=== PATIENT | female | born 1965 | race Caucasian/White ===

== ENCOUNTER 2021-05-20 12:51 | Emergency (ER) | payer OTHER, SELFPAY ==
[2021-05-20 13:00] VITALS: BP 178/96; PULSE 94; RESP 18; TEMP 37; O2SAT 98
--- NOTE | 2021-05-20 13:02 | ED.GENADULT ---
HPI - General Adult General Chief complaint: Back Pain/Injury Stated complaint: High Blood Pressure,Pain in Back and throat Time Seen by Provider: 05/20/21 13:02 Source: patient and RN notes reviewed Mode of arrival: ambulatory Limitations: no limitations History of Present Illness HPI narrative: 55-year-old female who presents to [facility] with complaints of extreme elevation in blood pressure the past 2 days with 3 days of intermittent throat tightness and mid back pain which she rates at 5/10 Patient has had a history of hypertension and had doctors visit last week and B/P was high then and she has been keeping track of it. 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 She reports that last night the tightness in her upper chest and esophagus woke her up. Patient states that she has been under a lot of stress with father dying in January and doing all the legal stuff on his estate. She denies any nausea or episodes of vomiting or any diaphoresis. MD complaint: hypertension with mid back prajapati and upper chest pressure Related Data Home Medications Medication Instructions Recorded Confirmed zolpidem 10 mg tablet 10 mg PO QHS PRN 05/13/21 05/20/21 Allergies Allergy/AdvReac Type Severity Reaction Status Date / Time codeine Allergy Mild Itching Verified 05/20/21 14:26 Sulfa (Sulfonamide Allergy Mild HIVES Verified 05/20/21 14:26 Antibiotics) Review of Systems Review of Systems: CONSTITUTIONAL: Denies fever, chills, or sweats. EYES: Denies visual changes, redness, or discharge. ENT: Denies rhinorrhea, congestion, sore throat, or otalgia. CARDIOVASCULAR: Upper chest or throat pressure sensation denies any palpitations, or edema. RESPIRATORY: Denies cough or dyspnea. GASTROINTESTINAL: Denies abdominal pain, nausea, vomiting, or diarrhea. GENITOURINARY: Denies dysuria or hematuria. SKIN: Denies rash or itching. MUSCULOSKELETAL: Positive for mid back pain intermittently, no joint pain, or myalgia. NEUROLOGIC: Denies headache, numbness, or weakness. PSYCHIATRIC: denies anxiety or depression. All systems reviewed & are unremarkable except as noted in HPI and below PMFSH Past Medical History Medical History HTN (hypertension) Insomnia Surgical History Surgical History History of carpal tunnel release of both wrists History of D&C History of hysterectomy History of right knee surgery Family History Family History Father Heart disease Hypertension Mother Heart disease Hypertension Depression Social History Social History Smoking status: Never smoker Second hand tobacco smoke exposure: No Alcohol intake: never Substance use: never Substance use type: does not use Gender identity (if verbalized by the patient): Female Sexual Orientation (if Verbalized by the Patient): Straight or Heterosexual Comments At time of signature, agree with nursing past medical, surgical, social and family history. There is no relevant family history pertinent to the presenting complaint Exam Narrative: GENERAL: Well-appearing, well-nourished,obese, and in no acute distress. HEAD: Normocephalic, atraumatic. EYES: PERRLA and EOMI. ENT: Nares clear, no rhinorrhea or epistaxis. Mucous membranes moist.TM's normal NECK: Supple.no lymphadenopathy CHEST: Clear to auscultation. No respiratory distress.SAO2 98% on room air HEART: Regular rate and rhythm. No murmur heard. Normal peripheral pulses. ABDOMEN: Soft, nontender, nondistended, normal active bowel sounds. denies any nausea or emesis EXTREMITIES: Normal range of motion. No edema. SKIN: Warm, dry, no rash. NEURO: No focal deficits. Alert and oriented x3. Course Course Emergency Course: Intermittent episodes o
--- NOTE | 2021-05-20 13:15 | ECG_ITS ---
Measurements Intervals Pinson Rate: 90 P: 6 OR: 160 QRS: 10 QRSD: 81 T: 19 QT: 350 QTc: 430 Interpretive Statements SINUS RHYTHM DELAYED PRECORDIAL R/S TRANSITION BORDERLINE ECG Electronically Signed On 05-20-2021 13:24:08 CDT by Julio Haynes D.O.
[2021-05-20 13:30] VITALS: BP 178/102; PULSE 94; O2SAT 98
== END 2021-05-20 13:30 | disposition short-term general hospital (02) ==
PROVIDERS: Emergency Provider Registered Nurse; PCP Family Medicine
DX: I10 Essential (primary) hypertension (principal)
CPT/HCPCS: 93005; 99213; G0463

== ENCOUNTER 2021-05-20 13:52 | Observation (INO) | payer OTHER, SELFPAY ==
[2021-05-20] VITALS (27 sets, daily range): BP systolic 127–188; BP diastolic 87–116; PULSE 84–101; RESP 16–34; TEMP 36.1–36.6; O2SAT 96–100; BMI 45.7
--- NOTE | ~2021-05-20 | NM_ITS ---
EXAMINATION: NM flower stress w perfusion DATE: 05/21/2021 13:32 INDICATION: Chest pain TECHNIQUE: Rest images were obtained following intravenous administration of 11 mCi Tc99m tetrofosmin (Myoview). The patient was infused intravenously with Lexiscan (Regadenoson). Then, 33 mCi Tc99m tet rofosmin (Myoview) was administered intravenously, and stress images were obtained. Data was reconstr ucted into short axis and horizontal and vertical long axis SPECT images. Gated SPECT images were als o obtained. COMPARISON: None. FINDINGS: There is no definite reversible or fixed perfusion abnormality to suggest ischemia or infar ction. There is normal left ventricular chamber size, wall motion and ejection fraction. Left ventr icular ejection fraction measures >70%. IMPRESSION: 1. Normal myocardial perfusion at rest and during stress. 2. Left ventricular ejection fraction measuring >70%. Reviewed, dictated and finalized at location A.
--- NOTE | ~2021-05-20 | XR_ITS ---
EXAMINATION: XR chest 2V EXAM DATE: 05/20/2021 14:49 INDICATION: Chest pain. TECHNIQUE: Frontal and lateral projections of the chest obtained and reviewed. Comparison is made to prior examination from 01/21/2021. FINDINGS: The lungs are clear. There are no pleural effusions. The cardiomediastinal silhouette is within normal limits. There is no pneumothorax suspected. The bones and soft tissues are unremarkab le. IMPRESSION: No acute cardiopulmonary findings. Reviewed, dictated and finalized at location A.
--- NOTE | ~2021-05-20 | CT_ITS ---
EXAMINATION: CTA chest PE protocol DATE: 05/20/2021 16:41 INDICATION: Chest pain and shortness of breath TECHNIQUE: Computed tomography angiography (CTA) of the chest was performed with 100 mL Omnipaque-350 intravenous contrast timed to evaluate the pulmonary arteries. Coronal maximum intensity projection 3D-reconstructions were created by the technologist. The dose-length product (DLP) was 887.57 mGy-cm. Automated exposure control and iterative reconstruction technique were employed. COMPARISON: None. FINDINGS: The pulmonary arteries are well-opacified. No pulmonary embolism is identified. There is mi ld dependent atelectasis. The lungs are free of focal airspace opacities. A 4 mm nodule is present in the left lower lobe, likely old granulomatous disease. The heart size is normal. There is a 2.0 x 1. 4 cm soft tissue density mass in the anterior mediastinum. There is diffuse circumferential wall thic kening of the esophagus. The gallbladder is surgically absent. The liver is diffusely low in attenuat ion when compared with the spleen, consistent with hepatic steatosis. There is moderate thoracic spon dylosis. IMPRESSION: 1. No pulmonary embolism or acute cardiopulmonary abnormality. 2. Incidental soft tissue mass in the anterior mediastinum. Differential includes thymoma, ectopic th yroid, lymphoma, and possibly germ cell tumor. 3. Diffuse circumferential wall thickening of the esophagus which may reflect esophagitis. Reviewed, dictated and finalized at location A. IMPRESSION: 1. No pulmonary embolism or acute cardiopulmonary abnormality. 2. Incidental soft tissue mass in the anterior mediastinum. Differential includ es thymoma, ectopic thyroid, lymphoma, and possibly germ cell tumor. 3. Diffuse circumferential wall thickening of the esophagus which may reflect e sophagitis.
[2021-05-20 14:29] LABS: Basophils Percent Auto 0.4 % (0.2-1.2); Eosinophils Absolute Auto 0.1 K/mm3 (0-0.3); Eosinophils Percent Auto 1.8 % (0-4.4); Hemoglobin 14.3 g/dL (12.0-15.0); Immature Granulocyte Absolute 0.02 K/mm3 (0.00-0.031); Immature Granulocyte Percent A 0.3 % (0-0.5); Lymphocytes Absolute Auto 2.04 K/mm3 (0.9-3.2); Mean Corpuscular HGB Conc 32.5 g/dl (32-36); Mean Corpuscular Volume 92.4 fl (80-100); Mean Platelet Volume 8.5 fl (7.4-10.4); Monocytes Absolute Auto 0.5 K/mm3 (0.1-0.6); Monocytes Percent Auto 6.9 % (2.6-8.5); Neutrophils Absolute Auto 4.1 K/mm3 (1.3-6.7); Neutrophils Percent Auto 60.6 % (45.5-73.1); Platelet Count Result 285 k/mm3 (150-375); Red Blood Count 4.76 M/mm3 (4.2-5.4); Red Cell Distribution Width 13.2 % (11.5-14.5); White Blood Count 6.8 K/mm3 (4.5-10.0)
[2021-05-20 14:38] LABS: Anion Gap 12 mmol/L (8-16); Blood Urea Nitrogen 17 mg/dL (7-17); Calcium 9.4 mg/dL (8.4-10.2); Carbon Dioxide 24 mmol/L (22-30); Chloride 106 mmol/L (98-107); Estimated CRCL calculation 87 ml/min; Estimated Glomerular Filt Rate > 60; Glucose 138 mg/dL (65-110); INR 0.9; Prothrombin Time 11.8 Seconds (11.1-14.7); Sodium 142 mmol/L (137-145)
[2021-05-20 14:39] LABS: Partial Thromboplastin Time 27.1 SECONDS (22.3-36.8)
--- NOTE | 2021-05-20 14:48 | ED.RECABL ---
HPI - Recheck/Abnormal Lab/Rx General Chief Complaint: Recheck/Abnormal Lab/Rx <Tamica Mariscal PA-C - Last Filed: 05/20/21 18:18> Stated Complaint: htn <Tamica Mariscal PA-C - Last Filed: 05/20/21 18:18> Time Seen by Provider: 05/20/21 14:02 <Tamica Mariscal PA-C - Last Filed: 05/20/21 18:18> Source: patient <Tamica Mariscal PA-C - Last Filed: 05/20/21 18:18> Mode of arrival: ambulatory <ANA Mohamud Last Filed: 05/20/21 18:18> Limitations: no limitations <Tamica Mariscal PA-C - Last Filed: 05/20/21 18:18> History of Present Illness HPI narrative: This is a 55 year old female that presents to the ER for elevated blood pressure. Reports over the last week she has noted her blood pressure is elevated. Does report increased stress at home. Reports since yesterday she has been getting blood pressures in the 180s-220s systolic. Reports she has been taking her Lisinopril as prescribed. She has been on this medication for years. Reports she has also been getting intermittent chest pain/pressure over the last couple of days. Denies any pain currently. Does also report she got short of breath walking from the car inside to the ER today. Denies fever, cough, or lower extremity edema. <Tamica Mariscal PA-C - Last Filed: 05/20/21 18:18> Related Data Home Medications: Home Medications Medication Instructions Recorded Confirmed zolpidem 10 mg tablet 10 mg PO QHS PRN 05/13/21 05/20/21 <ANA Mohamud Last Filed: 05/20/21 18:18> Allergies/Adverse Reactions: Allergies Allergy/AdvReac Type Severity Reaction Status Date / Time codeine Allergy Mild Itching Verified 05/20/21 14:26 Sulfa (Sulfonamide Allergy Mild HIVES Verified 05/20/21 14:26 Antibiotics) <ANA Mohamud Last Filed: 05/20/21 18:18> Review of Systems Review of Systems: CONSTITUTIONAL: Denies fever CARDIOVASCULAR: Reports chest pain. Denies edema. RESPIRATORY: Reports dyspnea. Denies cough <Tamica Mariscal PA-C - Last Filed: 05/20/21 18:18> All systems reviewed & are unremarkable except as noted in HPI and below <Tamica Mariscal PA-C - Last Filed: 05/20/21 18:18> [facility] Past Medical History Medical History: Medical History HTN (hypertension) Insomnia <Tamica Mariscal PA-C - Last Filed: 05/20/21 18:18> Surgical History Surgical History: Surgical History History of carpal tunnel release of both wrists History of D&C History of hysterectomy History of right knee surgery <Tamica Mariscal PA-C - Last Filed: 05/20/21 18:18> Family History Family History: Family History Father Heart disease Hypertension Mother Heart disease Hypertension Depression <Tamica Mariscal PA-C - Last Filed: 05/20/21 18:18> Social History Social History: Social History Smoking status: Never smoker Second hand tobacco smoke exposure: No Alcohol intake: never Substance use: never Substance use type: does not use Gender identity (if verbalized by the patient): Female Sexual Orientation (if Verbalized by the Patient): Straight or Heterosexual Spiritual care concerns: No <Tamica Mariscal PA-C - Last Filed: 05/20/21 18:18> Exam Narrative: GENERAL: Well-appearing, obese, and in no acute distress. HEAD: Normocephalic, atraumatic. EYES: EOMI. NECK: Supple. No adenopathy or masses. No carotid bruits or JVD CHEST: Clear to auscultation. No respiratory distress. No wheezes rales or rhonchi HEART: Regular rate and rhythm. No murmur heard. Normal peripheral pulses. EXTREMITIES: Normal range of motion. No edema. SKIN: Warm, dry, no rash. NEURO: No focal deficits. Alert and oriented x3. PSYCH: Normal mood and affect <Tamica Dominguez
[2021-05-20 14:50] LABS: Troponin I < 0.012 ng/mL (0.000-0.034)
[2021-05-20 15:08] LABS: D Dimer 0.65 ug/mL (<0.48)
[2021-05-20 15:23] LABS: NT Pro B Type Natriuretic Pept 67 pg/mL (5-100)
[2021-05-20] MEDS: PANTOPRAZOLE SODIUM IV 40 MG VIAL IV PUSH (17:24)
[2021-05-20 17:51] LABS: Troponin I < 0.012 ng/mL (0.000-0.034)
--- NOTE | 2021-05-20 19:34 | ADMGEN ---
This patient, Kylee Souza, was admitted to IMU Room 202-01 AT 1906. Patient/family oriented to hospital policies and general routines including ID bracelet, bed and alarms, visiting hours, pain management, procedures, bathroom and other care routines, personal items, smoking policy, room service/diet, and visiting hours. Information on how to activate the Rapid Response Team has been discussed. Patient/Family are encouraged to report perceived risks to care and to ask questions if they do not understand what they are told or what they should do.
[2021-05-20 20:34] LABS: Troponin I < 0.012 ng/mL (0.000-0.034)
--- NOTE | 2021-05-20 21:00 | PM.IMHP ---
H&P: HPI History of Present Illness Date/Time: 05/20/21 21:00 Chief Complaint: Chest pain Narrative: This is a 55-year-old female with past medical history significant for hypertension, obesity, asthma. Patient presented today to the emergency room after she went to work and while she was at work she had lightheadedness, chest pain, she took her blood pressure and her systolic was in the 200's was having shortness of breath as well and pounding occipital headache but no vision changes, no blurry vision, no syncope or near syncope, no leg swelling ,no pounding on her chest ,no nausea ,no vomiting ,no abdominal pain ,no diarrhea ,she denies any PND or orthopnea. According to patient she has been on lisinopril and she has been taking 10 mg p.o. daily. She had an elevated D-dimer and CT rule out acute pulmonary embolism however she was found to have mass in her mediastinum and distal circumferential wall thickening of the esophagus however patient denies any heartburn or dyspepsia. Troponins x3 have been negative. Patient has been placed in observation for further management treatment and evaluation. Review of Systems Review of Systems: Lightheadedness uncontrolled high blood pressure Constitutional: Constitutional: Denies chills, Denies fatigue, Denies fever(s), Reports headache(s), Denies malaise, Denies night sweats and Denies weakness Eyes: Eyes: Denies change in vision ENT: Denies dysphagia, Denies vertigo, Denies dizziness, Denies nasal congestion, Denies nasal discharge and Denies odynophagia Cardiovascular: Cardiovascular: Denies irregular heart rhythm, Denies lightheadedness, Denies radiating jaw, neck or arm pain, Denies orthopnea and Denies paroxysmal nocturnal dyspnea Respiratory: Respiratory: Denies cough Gastrointestinal: Gastrointestinal: Denies abdominal pain, Denies dyspepsia, Denies heartburn and Denies diarrhea Genitourinary: Genitourinary: Reports no additional female genitourinary complaints Musculoskeletal: Musculoskeletal: Reports no additional musculoskeletal complaints Integumentary/Breasts: Skin/Breast: Reports system reviewed and no additional complaints, except as docu Neurologic: Reports system reviewed and no additional complaints, except as documented Psychiatric: Psychiatric: Reports no additional psychiatric complaints Endocrine: Endocrine: Reports no additional endocrine complaints Hematologic/Lymphatic: Hematologic/Lymphatic: Reports no additional hematologic/lymphatic complaints Allergic/Immunologic: Allergic/Immunologic: Reports no additional allergic/immunologic complaints PMFSH Past Medical History Medical History HTN (hypertension) Insomnia Surgical History Surgical History History of carpal tunnel release of both wrists History of D&C History of hysterectomy History of right knee surgery Family History Family History Father Heart disease Hypertension Mother Heart disease Hypertension Depression Social History Social History Smoking status: Never smoker Second hand tobacco smoke exposure: No Alcohol intake: never Substance use: never Substance use type: does not use Gender identity (if verbalized by the patient): Female Sexual Orientation (if Verbalized by the Patient): Straight or Heterosexual Spiritual care concerns: No Meds Home Medications and Allergies Home Medications Medication Instructions Recorded Confirmed Type albuterol sulfate 90 mcg/actuation 1 inh INHALATION Q4H PRN #8.5 g 05/13/21 05/20/21 Rx aerosol inhaler zolpidem 10 mg tablet 10 mg PO QHS PRN 05/13/21 05/20/21 History lisinopril 10 mg PO DAILY 05/20/21 05/20/21 History Allergies Allergy/AdvReac Type Severity Reaction Status Date / Time dez Escamilla
[2021-05-21] VITALS (9 sets, daily range): BP systolic 123–151; BP diastolic 67–108; PULSE 76–90; RESP 14–22; TEMP 36.1–36.8; O2SAT 97–99
--- NOTE | 2021-05-21 | ECHO_ITS ---
Patient Info Name: Kylee Souza Age: 55 years : 1965 Gender: Female Ht: 63 in Wt: 258 lbs BSA: 2.35 m2 HR: 78 bpm BP: 123 / 67 mmHg Heart Rhythm: Sinus Rhythm Technical Quality: Fair Exam Date: 05/21/2021 2:33 PM Exam Location: [facility]am Room: Patient Status: Inpatient Admit Date: 05/20/2021 Staff Ordering Physician: Barbara Alvarado MD Health Care Specialist: Jackie Muñoz RDCS Attending Provider: Edel Arora MD Referring Physician: Christiano ROCHA; Exam Type: CA echo doppler color flow Study Info Indications - uncontrolled htn Complete two-dimensional, color flow and Doppler transthoracic echocardiogram is performed. Summary 1. Complete two-dimensional, color flow and Doppler transthoracic echocardiogram is performed. 2. Left ventricular chamber size, wall thickness and systolic function are normal with no regional wall motion abnormalities with an estimated ejection fraction of 65-70%. Diastolic dysfunction is present, grade 2. 3. Left atrial chamber dimension is mildly enlarged. 4. No significant valve disease. 5. Normal sinus rhythm. Left Ventricle Left ventricular chamber dimension is normal. Left ventricular systolic function is normal, estimated at 65-70%. There is no increased left ventricular wall thickness. Left ventricular septal wall motion is normal. The left ventricular diastolic function is grade II diastolic dysfunction. E/e' 12.0 is mildly elevated. Left ventricular chamber size, wall thickness and systolic function are normal with no regional wall motion abnormalities with an estimated ejection fraction of 65-70%. Diastolic dysfunction is present, grade 2. Right Ventricle Right ventricular chamber dimension is normal. Right ventricular systolic function is normal. Left Atria Left atrial chamber dimension is mildly enlarged. Right Atria Right atrial chamber dimension is normal. Aortic Valve The aortic valve is trileaflet. There is no aortic valve sclerosis. There is no aortic valve stenosis. There is no aortic valve regurgitation. Pulmonic Valve The pulmonic valve is normal. There is no pulmonic valve stenosis. There is no pulmonic regurgitation. Mitral Valve The mitral valve has normal leaflets. There is no mitral valve stenosis. There is no mitral valve regurgitation. Tricuspid Valve The tricuspid valve leaflets are normal. There is no significant tricuspid valve stenosis. There is no tricuspid valve regurgitation. No pulmonary hypertension, estimated pulmonary arterial systolic pressure is Empty. Pericardium/Pleural The pericardium appears normal. There is no pericardial effusion. Inferior Vena Cava Not well visualized inferior vena cava with >50% collapse upon inspiration consistent with Empty right atrial pressure, Empty. Aorta The aortic root size at the sinus of Valsalva is normal. The prox ascending aorta size is normal. Left Ventricular Outflow Tract Name Value Normal LVOT 2D LVOT Diameter 2.0 cm LVOT Doppler LVOT Peak Gradient 5 mmHg LVOT Mean Gradient
--- NOTE | 2021-05-21 | EST_ITS ---
Patient Info Name: Kylee Souza Age: 55 years : 1965 Gender: Female Ht: 63 in Wt: 258 lbs BSA: 2.35 m2 HR: 87 bpm BP: 136 / 86 mmHg Heart Rhythm: Sinus Rhythm Exam Date: 05/21/2021 12:02 PM Exam Location: [facility] Stress Patient Status: Outpatient Admit Date: 05/20/2021 Staff Ordering Physician: Candice Garcia MD Attending Provider: Edel Arora MD Exercise Technologist: Toshia Lazo CT Exercise Physician: Lin Byrnes MD Exam Type: CA stress flower w NM Study Info A regadenoson stress test was performed. Summary 1. No abnormal ST-T wave changes with lexiscan. 2. Nuclear test results to follow. Protocol: Lexiscan Stress ECG Details Stage: REST Duration (min): 1 min : 21 sec HR (bpm): 86 SBP (mmHg): 136 DBP (mmHg): 86 Stage: REST Duration (min): 13 min : 14 sec HR (bpm): 95 SBP (mmHg): 136 DBP (mmHg): 86 Stage: STAGE 1 Duration (min): 1 min : 0 sec HR (bpm): 111 SBP (mmHg): 111 DBP (mmHg): 61 Stage: RECOVERY Duration (min): 1 min : 0 sec HR (bpm): 105 SBP (mmHg): 111 DBP (mmHg): 61 Stage: RECOVERY Duration (min): 2 min : 0 sec HR (bpm): 105 SBP (mmHg): 111 DBP (mmHg): 61 Stage: RECOVERY Duration (min): 3 min : 0 sec HR (bpm): 100 SBP (mmHg): 118 DBP (mmHg): 66 Stage: RECOVERY Duration (min): 4 min : 0 sec HR (bpm): 101 SBP (mmHg): 118 DBP (mmHg): 66 Stage: RECOVERY Duration (min): 4 min : 20 sec HR (bpm): 102 SBP (mmHg): 118 DBP (mmHg): 66 Rest HR: 95 bpm Peak HR: 111 bpm Rest Sys BP: 136 mmHg Peak Sys BP: 118 mmHg Max Pred HR: 166 bpm % Max Pred HR: 67 % Target HR: 141 bpm Max RPP: 13,098 bpm*mmHg BP Response: Normal blood pressure response Termination Reason: Completed protocol Cardiac Symptoms: Chest discomfort, Dyspnea Total Time: 1 min : 0 sec Rest Bullock BP: 86 mmHg Peak Bullock BP: 66 mmHg Total Dose: 0.4 mg Resting ECG Normal sinus rhythm - normal ECG. Stress ECG No abnormal ST/T wave changes with exercise. Arrhythmias None. Report Signatures
[2021-05-21] MEDS: ACETAMINOPHEN 500 MG TABLET 1000 MG PO (01:40)
--- NOTE | 2021-05-21 07:19 | PM.IMPN ---
Progress Note: A&P Assessment and Plan (1) Chest pain: Qualifiers: Chest pain type: unspecified Qualified Code(s): R07.9 - Chest pain, unspecified Code(s): R07.9 - Chest pain, unspecified Status: Acute Assessment and Plan: Troponins negative x3 Echocardiogram in a.m. Lexiscan stress test in am Needs better control of her blood pressure (2) HTN (hypertension): Code(s): I10 - Essential (primary) hypertension Status: Acute Assessment and Plan: Needs her medications to be adjusted Will increase lisinopril to 40 p.o. daily Hydralazine p.r.n. Continue to monitor (3) Mediastinal mass: Code(s): J98.59 - Other diseases of mediastinum, not elsewhere classified Status: Acute Assessment and Plan: Follow-up in outpatient setting Subjective Date/time seen: 05/21/21 07:19 his is a 55-year-old female with past medical history significant for hypertension, obesity, asthma. Patient presented today to the emergency room after she went to work and while she was at work she had lightheadedness, chest pain, she took her blood pressure and her systolic was in the 200's was having shortness of breath as well and pounding occipital headache but no vision changes, no blurry vision, no syncope or near syncope, no leg swelling ,no pounding on her chest ,no nausea ,no vomiting ,no abdominal pain ,no diarrhea ,she denies any PND or orthopnea. According to patient she has been on lisinopril and she has been taking 10 mg p.o. daily. She had an elevated D-dimer and CT rule out acute pulmonary embolism however she was found to have mass in her mediastinum and distal circumferential wall thickening of the esophagus however patient denies any heartburn or dyspepsia. Troponins x3 have been negative. Patient has been placed in observation for further management treatment and evaluation. S Review of Systems Constitutional: Constitutional: Denies chills, Denies fatigue, Denies fever(s), Reports headache(s), Denies malaise, Denies night sweats and Denies weakness Eyes: Eyes: Denies change in vision ENT: Denies dysphagia, Denies vertigo, Denies dizziness, Reports headache(s), Denies nasal congestion, Denies nasal discharge and Denies odynophagia Cardiovascular: Cardiovascular: Denies irregular heart rhythm, Denies lightheadedness, Denies radiating jaw, neck or arm pain, Denies orthopnea and Denies paroxysmal nocturnal dyspnea Respiratory: Respiratory: Denies cough Gastrointestinal: Gastrointestinal: Denies abdominal pain, Denies dysphagia, Denies dyspepsia, Denies heartburn, Denies diarrhea and Denies odynophagia Genitourinary: Genitourinary: Reports no additional female genitourinary complaints Musculoskeletal: Musculoskeletal: Reports no additional musculoskeletal complaints Integumentary/Breasts: Skin/Breast: Reports system reviewed and no additional complaints, except as docu Neurologic: Reports system reviewed and no additional complaints, except as documented, Denies vertigo, Denies dizziness, Reports headache(s) and Denies weakness Psychiatric: Psychiatric: Reports no additional psychiatric complaints Endocrine: Endocrine: Reports no additional endocrine complaints and Denies fatigue Hematologic/Lymphatic: Hematologic/Lymphatic: Reports no additional hematologic/lymphatic complaints Allergic/Immunologic: Allergic/Immunologic: Reports no additional allergic/immunologic complaints Exam Narrative: Laying in bed. Const: General: cooperative, comfortable, no acute distress, well developed, alert, awake, Physically active, well groomed and other (Well-appearing); No acute distress Nutritional Appearance: obese morbidly obese Orientation/consciousness: patient oriented x3 HENMT: Head: normal to inspection, normocephalic and atraumatic Ears: hearing grossly normal bilaterally General nose exam: Normal external nose present Face and sinus: normal facial exam Mouth: Yes Normal oral and
[2021-05-21] MEDS: lisinopriL 20 MG TABLET 40 MG PO (09:02)
--- NOTE | 2021-05-21 10:10 | PM.CNCAR ---
Assessment and Plan Assessment and plan (1) Chest pain: Qualifiers: Chest pain type: unspecified Qualified Code(s): R07.9 - Chest pain, unspecified Code(s): R07.9 - Chest pain, unspecified Status: Acute Assessment and Plan: Chest pain with a grabbing squeezing quality which is of concern for ACS or dissection. However, no aortic problems by CT and troponins and EKG are unremarkable after hours/days of CP, so ACS is unlikely. May relate to uncontrolled HTN or esophageal problems. Agree with Lexiscan stress test today. Tx H/A w/ analgesics. (2) HTN (hypertension): Code(s): I10 - Essential (primary) hypertension Status: Acute Assessment and Plan: Both parents have HTN and pt is in the age range in which HTN often starts. Agree w increasing lisinopril; likely will need multi-drug tx. (3) Mediastinal mass: Code(s): J98.59 - Other diseases of mediastinum, not elsewhere classified Status: Acute Assessment and Plan: Will need further evaluation. (4) Esophageal disease: Code(s): K22.9 - Disease of esophagus, unspecified Status: Acute Assessment and Plan: Thickening of esophagus, may have subclinical GERD or other pathology. History of Present Illness History of Present Illness Consult date/time: 05/21/21 10:10 Requesting physician: Candice Garcia MD Consult reason: chest pain Reason For Visit: Chest pain Narrative: Kylee Souza is a 55-year-old female whom I was asked to see at the request of Dr. Garcia for my advice and opinion regarding her chest pain in consultation. Ms. Souza has had borderline hypertension for many years well controlled with lisinopril 10 mg daily. When she saw Dr. Wooten last week it was 151/96. She has been checking her blood pressure the last few days and getting high blood pressures, 171/137, 204/120, 220/124 mmHg. ol. She was sent to the emergency room and admitted. She also has been having grabbing and squeezing chest discomfort the last 3 days. These episodes are substernal, occurring randomly at rest, can last for couple hours and then off and on through the day, more common in the morning, and irritating discomfort, sometimes associated with shortness of breath. Did not respond to IV PPI for GI cocktail. Troponins are negative. She has also been having terrible headaches the last 3 days and is requesting something stronger than Tylen No nonsteroidal use, no added salt diet, lifelong obesity but no recent weight gain, she does snore but has no known sleep apnea. Both parents have hypertension and her mother will be getting coronary stents in a couple weeks. Review of Systems Constitutional: Constitutional: Denies weakness Eyes: Eyes: Reports no additional eye complaints ENT: Denies epistaxis Cardiovascular: Cardiovascular: Reports chest pain, Denies pedal edema, Denies leg edema, Denies lightheadedness and Denies palpitations Respiratory: Respiratory: Reports dyspnea Gastrointestinal: Gastrointestinal: Denies abdominal pain, Denies hematochezia and Denies heartburn Genitourinary: Genitourinary: Denies hematuria Musculoskeletal: Musculoskeletal: Denies back pain and Denies neck pain Integumentary/Breasts: Skin/Breast: Denies rash Neurologic: Reports headache(s) Psychiatric: Psychiatric: Reports no additional psychiatric complaints PMFSH Past Medical History Medical History HTN (hypertension) Insomnia Surgical History Surgical History History of carpal tunnel release of both wrists History of D&C History of
[2021-05-21] MEDS: ACETAMINOPHEN/ASPIRIN/CAFFEINE 250-250-65 MG TABLET 2 TABLET PO (13:31)
--- NOTE | 2021-05-21 14:51 | PM.DS ---
DS: Admitting Diagnosis Discharge Date 05/21/2021 Admitting Diagnosis Chest pain, rule out ACS DS: Discharge Diagnosis Discharge Diagnosis (1) Chest pain: Qualifiers: Chest pain type: unspecified Qualified Code(s): R07.9 - Chest pain, unspecified Code(s): R07.9 - Chest pain, unspecified Status: Acute Assessment and Plan: Troponins negative x3 Echocardiogram in a.m. Lexiscan stress test in am Needs better control of her blood pressure (2) HTN (hypertension): Code(s): I10 - Essential (primary) hypertension Status: Acute Assessment and Plan: Needs her medications to be adjusted Will increase lisinopril to 40 p.o. daily Hydralazine p.r.n. Continue to monitor DS: Summary Hospital Course Reason for hospitalization: chest pain Hospital Course: This is a 55-year-old lady with past medical history significant for hypertension, obesity, asthma. Patient presented on 05/20/2021 to the emergency room after she was at work and she had lightheadedness, chest pain, she took her blood pressure and her systolic was in the 200's was having shortness of breath as well and pounding occipital headache but no vision changes, no blurry vision, no syncope or near syncope, no leg swelling ,no pounding on her chest ,no nausea ,no vomiting ,no abdominal pain ,no diarrhea ,she denies any PND or orthopnea. According to patient she has been on lisinopril and she has been taking 10 mg p.o. daily. She had an elevated D-dimer and CT rule out acute pulmonary embolism however she was found to have mass in her mediastinum and distal circumferential wall thickening of the esophagus however patient denies any heartburn or dyspepsia. Troponins x3 have been negative. Patient has been placed in observation for further management treatment and evaluation. Chest pain with a grabbing squeezing quality which is of concern for ACS or dissection. However, no aortic problems by CT and troponins and EKG are unremarkable after hours/days of CP, so ACS is unlikely. May relate to uncontrolled HTN or esophageal problems. HOspital course Chest pain with a grabbing squeezing quality was a concern for ACS or dissection. However, no aortic problems by CT and troponins and EKG are unremarkable after hours/days of CP, so ACS is unlikely. Lexiscan stress test was normal . Chest pain may relate to uncontrolled HTN or esophageal problems. (2) HTN (hypertension): Code(s): I10 - Essential (primary) hypertension Status: Acute Assessment and Plan: Both parents have HTN and pt is in the age range in which HTN often starts. Lisinopril was increased from 10 to 40 mg PO daily. HCTZ 12.5 mg PO dialy was added to her regimen. She is counselled about weight reduction, diet and exercise. Patient was referred to do a sleep study. Time Spent with Patient Time attestation: Total time spent providing and/or coordinating discharge services: Exam Narrative: Laying in bed. Const: General: cooperative, comfortable, no acute distress, well developed, alert, awake, Physically active, well groomed and other (Well-appearing); No acute distress Nutritional Appearance: obese morbidly obese Orientation/consciousness: patient oriented x3 HENMT: Head: normal to inspection, normocephalic and atraumatic Ears: hearing grossly normal bilaterally General nose exam: Normal external nose present Face and sinus: normal facial exam Mouth: Yes Normal oral and palatal mucosa present Eyes: General: appearance normal, both eyes and all related structures Alignment and Position: alignment normal Sclera: sclerae normal Pupils: Equal, round and reactive pupils present EOM: EOMs intact bilaterally Neck: Neck: normal visual inspection, full ROM, no lymphadenopathy, supple and no JVD Thyroid: thyroid normal Lymphatic: no lymphadenopathy noted Resp: Effort & Inspection: normal respiratory effort and able to speak in complete sentences Auscultation: baljinder
== END 2021-05-21 16:00 | disposition home or self-care (01) ==
LOC: ANHED 18:15 → ANHIMU 05-21 08:50
PROVIDERS: Physician Assistant; Admitting Provider Family Medicine; Emergency Provider Emergency Medicine; PCP Family Medicine; Visit Provider Internal Medicine
DX: R07.9 Chest pain, unspecified (principal); I10 Essential (primary) hypertension; E66.9 Obesity, unspecified; J98.59 Other diseases of mediastinum, not elsewhere classified; K22.9 Disease of esophagus, unspecified; R06.02 Shortness of breath; Z68.42 Body mass index [BMI] 45.0-49.9, adult
CPT/HCPCS: 36415; 71046; 71275; 78452; 80048; 83880; 84484; 85025; 85380; 85610; 85730; 93017; 93306; 96374; 99285; A9270; A9502; C9113; G0378; J2785; Q9967

== ENCOUNTER 2021-06-02 11:40 | Outpatient (CLI) | payer OTHER, SELFPAY ==
--- NOTE | ~2021-06-02 | PE_ITS ---
EXAMINATION: PET skull to mid thigh DATE: 06/02/2021 13:33 INDICATION: Mediastinal mass. TECHNIQUE: Blood glucose level was 102 mg/dL. 10.52 mCi of 18-fluorodeoxyglucose (18-FDG) was adminis tered i.v. Low dose computed tomography (CT) images were acquired from the base of the brain to the p roximal thighs for attenuation correction and anatomic localization. Positron emission tomography (PE T) images were acquired in the same distribution beginning 60 minutes after injection. Images includi ng fused PET/CT images were reconstructed in axial, coronal, and sagittal planes. Automated exposure control technique was employed. The dose-length product was 1332.59mGy-cm. COMPARISON: CT dated 05/20/2021 FINDINGS: Head/neck: There is symmetric increased activity in the oral cavity, palatine tonsils, laryngeal muscles and ocu lar muscles without CT correlate, likely physiologic. No pathologically enlarged cervical lymphadenop athy or suspicious foci of increased FDG uptake in the visualized head or neck. Chest: Lungs are clear with no suspicious pulmonary nodules, pneumonia or other pulmonary infiltrates, pulmo nary edema or pleural effusion. Heart size is normal. No pericardial effusion. Thoracic aorta is norm al in caliber. 2.5 x 2.4 x 1.4 cm anterior mediastinal mass on the anterior margin of the ascending t horacic aorta which is without discernible FDG activity which favors a benign etiology. No other path ologically enlarged or FDG avid thoracic lymphadenopathy. Abdomen/pelvis/proximal thighs: Physiologic renal accumulation and excretion of FDG activity in the kidneys, bladder and along portio ns of ureters. Diffuse hepatic steatosis with normal degree and heterogenous pattern of increased upt agueda throughout the liver without radiologic correlate or dominant FDG avid lesion. Cholecystectomy cl ips the gallbladder fossa. The pancreas, spleen and bilateral adrenal glands are normal. Mild uptake scattered throughout the bowels without radiologic correlate, also likely physiologic. No other abnor mal foci of increased FDG uptake or pathologically enlarged lymphadenopathy in the abdomen, pelvis or proximal thighs. Musculoskeletal: Moderate to severe thoracic spondylosis. Otherwise mild scattered degenerative skeletal changes. No s uspicious lytic, blastic or FDG avid bone lesions. IMPRESSION: 1. Likely benign 2.5 x 2.4 x 1.4 cm anterior mediastinal mass with no discernible FDG activity. Diffe rential would include schwannoma, chronic reactive lymph node, ectopic thyroid tissue, parathyroid ad enoma or low-grade thymoma. 2. No other lesions suspicious for primary or metastatic disease. Reviewed, dictated and finalized at location A. IMPRESSION: 1. Likely benign 2.5 x 2.4 x 1.4 cm anterior mediastinal mass with no discernib le FDG activity. Differential would include schwannoma, chronic reactive lymph node, ectopic thyroid tissue, parathyroid adenoma or low-grade thymoma. 2. No other lesions suspicious for primary or metastatic disease.
[2021-06-02 12:11] LABS: Glucose Point of Care 102 mg/dl (65-105)
== END 2021-06-02 11:41 | disposition home or self-care (01) ==
LOC: ANHIMG 11:48
PROVIDERS: PCP Family Medicine; Visit Provider Nurse Practitioner Family
DX: J98.59 Other diseases of mediastinum, not elsewhere classified (principal)
CPT/HCPCS: 78815; A9552

== ENCOUNTER 2021-06-19 07:24 | Outpatient (CLI) | payer OTHER, SELFPAY ==
[2021-06-19 08:09] LABS: Hematocrit 43.1 % (37.0-47.0); Mean Corpuscular HGB Conc 32.5 g/dl (32-36); Mean Corpuscular Hemoglobin 30.6 pg (26-34); Mean Corpuscular Volume 94.3 fl (80-100); Mean Platelet Volume 8.7 fl (7.4-10.4); Platelet Count Result 273 k/mm3 (150-375); Red Blood Count 4.57 M/mm3 (4.2-5.4); Red Cell Distribution Width 13.3 % (11.5-14.5); White Blood Count 7.5 K/mm3 (4.5-10.0)
[2021-06-19 08:11] LABS: Add Urine Microscopic? NO; Appearance Urine Clear (Clear); Bilirubin Urine Negative (Negative); Blood Urine Negative (Negative); Color Urine Yellow (Yellow); Glucose Urine UA Negative (Negative); Ketones Urine Negative (Negative); Leukocyte Esterase Ur Negative LEU/UL (NEGATIVE); Nitrate Urine Negative (Negative); Protein Urine Negative (Negative); Specific Grav Ur 1.021 (1.001-1.035); Urobilinogen Urine Negative mg/dL (<2.0)
[2021-06-19 08:19] LABS: Alanine Aminotransferase 38 U/L (4-35); Albumin Level 4.4 g/dL (3.5-5.1); Alkaline Phosphatase 115 U/L (38-126); Anion Gap 6 mmol/L (8-16); Aspartate Amino Transferase 27 U/L (14-36); Bilirubin,Total 0.4 mg/dL (0.2-1.3); Blood Urea Nitrogen 20 mg/dL (7-17); Calcium 9.5 mg/dL (8.4-10.2); Carbon Dioxide 30 mmol/L (22-30); Chloride 104 mmol/L (98-107); Cholesterol 212 mg/dL (0-200); Estimated Glomerular Filt Rate > 60; Glucose 138 mg/dL (65-110); HDL Direct 38 mg/dL; Sodium 140 mmol/L (137-145); Triglycerides 267 mg/dL (<150)
[2021-06-19 08:30] LABS: LDL Cholesterol Direct 148 mg/dL
--- NOTE | 2021-06-19 13:19 | WPDPFTINT ---
PFT Procedure Performed PFT Procedure Performed Spirometry with Pre/Post Bronchodilator Plethysmography (Lung Vol) Diffusing Cap (DLCO) Flow Vol Loop PFT Interpretation This is a pulmonary function test with pre and post-bronchodilator spirometry, plethysmography and diffusing capacity. The test was performed and results interpreted in accordance with the 2019 and 2005 ATS/ERS Task Force guidelines respectively using the Global Lung Function Initiative-2012 reference equations. Patient demonstrated good effort and cooperation. Reproducibility criteria were met. The quality of the pre bronchodilator spirometry maneuver was Grade A and post bronchodilator spirometry maneuver was Grade B. Findings: Spirometry: The contour the inspiratory and expiratory flow tracing are normal. The pre bronchodilator FVC is 2.66 L, 82% predicted. The pre bronchodilator FEV1 is 2.13 L, 83% predicted. The FEV1: FVC ratio was 80%. The post bronchodilator FVC is 2.22 L, representing a 16% decrease. The post bronchodilator FEV1 is 1.86 L, representing a 12% decrease. Plethysmography: The total lung capacity is 4.29 L, 87% predicted. The functional residual capacity is 1.55 L, 56% predicted. The residual volume is 1.52 L, 83% predicted. Diffusing capacity: The absolute diffusion capacity is 16.5, 76% predicted. The diffusing capacity corrected for alveolar volume is 5.81, 127% predicted. Impression: The spirometry is normal without evidence of an obstructive abnormality. There is no significant improvement after inhaling a single dose of albuterol. The total lung capacity is normal with an isolated decrease in the functional residual capacity. This is an abnormal but nonspecific lung volume pattern. The diffusing capacity is normal. There are no prior studies for comparison
== END 2021-06-19 07:25 | disposition home or self-care (01) ==
LOC: ANHPFT 07:26
PROVIDERS: PCP Family Medicine; Visit Provider Family Medicine
DX: Z00.00 Encounter for general adult medical examination without abnormal findings (principal); R06.00 Dyspnea, unspecified; I10 Essential (primary) hypertension; E78.5 Hyperlipidemia, unspecified
CPT/HCPCS: 36415; 80053; 80061; 81003; 84443; 85027; 94060; 94726; 94729

== ENCOUNTER 2021-06-23 01:24 | Day surgery (SDC) | payer OTHER, SELFPAY ==
[2021-06-17 10:24] VITALS: BMI 45.3
--- NOTE | 2021-06-23 08:34 | WPDANESEPPF ---
Anes - Initial Pre Proc Eval Procedure: Operation Date: 06/23/21 09:45 Proposed Procedures p Esophagogastroduodenoscopy - Kailash Segundo MD Date/Time: 06/23/21 08:34 Surgeon: Kailash Segundo MD Pre Op Diagnosis: dysphagia Patient Data Age: 55 Gender: F Height: 1.6 m Weight: 116 kg Allergies Allergy/AdvReac Type Severity Reaction Status Date / Time codeine Allergy Mild Itching Verified 06/17/21 10:20 Sulfa (Sulfonamide Allergy Mild HIVES Verified 06/17/21 10:20 Antibiotics) omeprazole [From Prilosec] Allergy Muscle Verified 06/17/21 10:21 Spasms Home Medications Medication Instructions Recorded Confirmed Type albuterol sulfate 90 mcg/actuation 1 inh INHALATION Q4H PRN #8.5 g 05/13/21 06/17/21 Rx aerosol inhaler zolpidem 10 mg tablet 10 mg PO QHS PRN 05/13/21 06/17/21 History pantoprazole 40 mg PO Q12HR #60 tablet 05/21/21 06/17/21 Rx amlodipine 5 mg tablet 5 mg PO DAILY #30 tablet 06/16/21 06/17/21 Rx hydrochlorothiazide 12.5 mg tablet 12.5 mg PO DAILY #30 tablet 06/16/21 06/17/21 Rx lisinopril 40 mg tablet 40 mg PO DAILY #30 tablet 06/16/21 06/17/21 Rx owsmnomier-bkqaujhrzt-axf-cod 1 cap PO .q6 PRN 06/17/21 06/17/21 History Patient hx anesthesia problems: none Family hx anesthesia problems: none Results Review: All pre-operative results and documents have been reviewed as part of the pre-operative evaluation. [facility] Past Medical History Medical History (Updated 06/23/21 @ 08:39 by Fitz Quesada MD) Chest pain Choking Esophageal disease HTN (hypertension) Insomnia Mediastinal mass Morbid obesity with BMI of 40.0-44.9, adult SOB (shortness of breath) Surgical History Surgical History History of carpal tunnel release of both wrists History of D&C History of hysterectomy History of right knee surgery Family History Family History Father Heart disease CHF Hypertension COPD (chronic obstructive pulmonary disease) Mother Heart disease Getting stents in May 2021 Hypertension Depression Social History Social History Social History: , loss first 3 children shortly after but has 1 surviving son. 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 Smoking status: Never smoker Second hand tobacco smoke exposure: No Alcohol intake: never Alcohol use details: rarely Substance use: never Substance use type: does not use Living arrangements: with family Gender identity (if verbalized by the patient): Female Sexual Orientation (if Verbalized by the Patient): Straight or Heterosexual Spiritual care concerns: No Anes - Eval Final PreProcedure Day of Procedure 06/23/21 08:34 Patient weight: obese Heart: regular rate and rhythm Lungs: clear to auscultation and normal air movement Airway: Mallampati scale class II Neurological: alert and oriented Last oral intake: >/= 8 hours ASA classification: III Emergent: no Anesthetic plan: proceed Anesthesia type and monitoring: general GIVS Results Review: All pre-operative results and documents have been reviewed as part of the pre-operative evaluation. Informed Consent: The patient's anesthetic plan and its attendant risks and benefits were discussed with the patient/family/POA. Questions were solicited and answers provided to the satisfaction of the patient/family/POA.
[2021-06-23] MEDS: LACTATED RINGERS 1,000 ML 150 ML IV CONT (08:55)
[2021-06-23 08:57] VITALS: BP 161/98; PULSE 76; RESP 16; TEMP 36.7; O2SAT 98
--- NOTE | 2021-06-23 09:50 | WPDGICN ---
Assessment and Plan Assessment and plan (1) Dysphagia: Code(s): R13.10 - Dysphagia, unspecified Status: Acute Assessment and Plan: Patient reports brief 1-2 minute episodes of difficulty swallowing both solids and liquids most suspicious for esophageal spasms. Plan to assess with EGD. Suggest soft diet elevate head of bed and slow eating at this point. (2) Abnormal CT scan: Code(s): R93.89 - Abnormal findings on diagnostic imaging of other specified body structures Status: Acute Assessment and Plan: Recent CT scan suggests thickening to the esophagus. Differential diagnosis includes esophageal spasm but inflammation cannot be excluded an EGD will be performed. She has had no improvement with a brief trial of PPI therapy. Suggesting this is not acid reflux. (3) Morbid obesity with BMI of 40.0-44.9, adult: Code(s): E66.01 - Morbid (severe) obesity due to excess calories; Z68.41 - Body mass index [BMI] 40.0-44.9, adult Status: Acute Assessment and Plan: Weight loss by diet control and increase activity or strongly encouraged. GI Consult Note Consult date/time: 06/23/21 09:50 HPI: Kylee Souza is a 55 year old female Presents for EGD. Patient reports feeling fine until she received a COVID shot. She states after that she began to have issues with hypertension. She states intermittently will have brief episode of difficulty swallowing. During this brief episode that may last 1minute she will have difficulty swallowing solids and even liquids. Patient recently hospitalized with hypertension. During that hospital stay a CT scan was performed suggesting thickened esophagus . A PET scan was performed and question of a mediastinal mass was obtained. This ultimately was determined to be benign. Patient is referred for difficulty swallowing. She states that many years ago had acid reflux. This improved after cholecystectomy 7 years ago. Previously she took PPI therapy. She has taken no medications until her CT scan was performed. During that interval of time she took pantoprazole with no change in symptoms. She has taken no acid reducing agents over the last 2 weeks. No change in symptoms has been detected. She presents today for an EGD. Review of Systems Review of Systems: All systems reviewed & are unremarkable except as noted in HPI and below [facility] Past Medical History Medical History (Updated 06/23/21 @ 09:53 by Kailash Segundo MD) Chest pain Choking Esophageal disease HTN (hypertension) Insomnia Mediastinal mass Morbid obesity with BMI of 40.0-44.9, adult SOB (shortness of breath) Surgical History Surgical History History of carpal tunnel release of both wrists History of D&C History of hysterectomy History of right knee surgery Family History Family History Father Heart disease CHF Hypertension COPD (chronic obstructive pulmonary disease) Mother Heart disease Getting stents in May 2021 Hypertension Depression Social History Social History Social History: , loss first 3 children shortly after but has 1 surviving son. 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 Smoking status: Never smoker Second hand tobacco smoke exposure: No Alcohol intake: never Alcohol use details: rarely Substance use: never Substance use type: does not use Living arrangements: with family Gender identity (if verbalized by the patient): Female Sexual Orientation (if Verbalized by the Patient): Straight or Heterosexual Spiritual care concerns: No Meds Home Medications and Allergies Home Medications Medication Instructions Recorded Confirmed Type albuterol sulfate 90 mcg/actuation 1 inh INHALATION Q4H
[2021-06-23 09:53] VITALS: BP 145/89; PULSE 83; RESP 25; O2SAT 97
[2021-06-23 10:03] VITALS: BP 137/89; PULSE 75; RESP 28; O2SAT 97
[2021-06-23 10:13] VITALS: BP 119/83; PULSE 70; RESP 18; O2SAT 98
== END 2021-06-23 10:22 | disposition home or self-care (01) ==
PROVIDERS: PCP Family Medicine; Visit Provider Internal Medicine Gastroenterology
PROC: 0DJ08ZZ Inspection of Upper Intestinal Tract, Via Natural or Artificial Opening Endoscopic (ICD-10-PCS; CPT 43235; principal; 2021-06-23 09:45)
DX: R13.10 Dysphagia, unspecified (principal); I10 Essential (primary) hypertension; G47.00 Insomnia, unspecified; Z79.51 Long term (current) use of inhaled steroids; E66.01 Morbid (severe) obesity due to excess calories; Z68.42 Body mass index [BMI] 45.0-49.9, adult
CPT/HCPCS: 43235; J7120

== ENCOUNTER 2021-07-10 16:19 | Outpatient (CLI) | payer OTHER, SELFPAY ==
[2021-07-10 07:33] LABS: Iron 77 ug/dL (37-170)
[2021-07-10 07:46] LABS: Percent Iron Saturation 20 % (20-50)
[2021-07-10 08:05] LABS: Hepatitis B Surface Antigen Negative (Negative)
[2021-07-10 08:11] LABS: HAV RESULT Negative (Negative); Hepatitis B Core IgM Result Negative (Negative)
[2021-07-10 08:23] LABS: Hepatitis C Virus Antibody Negative (Negative)
[2021-07-10 18:25] LABS: Hemoglobin A1C 6.1 % (<5.7)
[2021-07-13 06:11] LABS: Rapid Plasma Reagin Non-Reactive (NonReactive)
== END 2021-07-10 16:20 | disposition home or self-care (01) ==
PROVIDERS: PCP Family Medicine; Visit Provider Physician Assistant
DX: K76.0 Fatty (change of) liver, not elsewhere classified (principal); R74.8 Abnormal levels of other serum enzymes; R73.01 Impaired fasting glucose
CPT/HCPCS: 36415; 80074; 82728; 83036; 83540; 83550; 86038; 86592

== ENCOUNTER 2021-08-08 07:30 | Outpatient (CLI) | payer OTHER, SELFPAY ==
--- NOTE | ~2021-08-08 | US_ITS ---
EXAMINATION: US venous doppler [facility] DATE: 08/08/2021 08:04 INDICATION: Right lower limb swelling. TECHNIQUE: Grayscale ultrasound images without and with compression and Doppler ultrasound images of the bilateral lower extremity veins were obtained. COMPARISON: None. FINDINGS: The visualized portions of right common femoral vein, profunda (deep) femoral vein, femoral vein, pop liteal vein, peroneal veins, posterior tibial veins, and greater saphenous vein outflow are patent. The visualized portions of left common femoral vein, profunda femoral vein, femoral vein, popliteal v ein, peroneal veins, posterior tibial veins, and greater saphenous vein outflow are patent. IMPRESSION: 1. No deep venous thrombosis. Reviewed, dictated and finalized at location A. BUYER
== END 2021-08-08 07:31 | disposition home or self-care (01) ==
LOC: ANHIMG 07:32
PROVIDERS: PCP Family Medicine; Visit Provider Physician Assistant
DX: M79.89 Other specified soft tissue disorders (principal); M79.606 Pain in leg, unspecified
CPT/HCPCS: 93970

== ENCOUNTER 2021-08-10 16:53 | Outpatient (CLI) | payer OTHER, SELFPAY ==
--- NOTE | ~2021-08-10 | XR_ITS ---
EXAMINATION: XR knee RT min 4V DATE: 08/10/2021 17:28 INDICATION: Generalized right knee pain, swelling and arthritis TECHNIQUE: Weight bearing anteroposterior and Martinez, sunrise, and flexed lateral views of the aff ected knee were obtained COMPARISON: None. FINDINGS: Alignment is normal. No fracture. Severe joint space narrowing and moderate-sized marginal osteophyt es at the medial compartment. Additional small marginal osteophytes at the medial and lateral compart ments. There is also a small central subchondral osteophyte along the central weightbearing lateral f emoral condyle best appreciated on the Martinez projection. No joint effusion/layering lipohemarthro sis. Small sclerotic bone island at the proximal tibia. Soft tissues are unremarkable. IMPRESSION: 1. Tricompartmental osteoarthritis at the right knee, severe in the medial compartment. Reviewed, dictated and finalized at location . ASS PLANT MANAGER IMPRESSION: 1. Tricompartmental osteoarthritis at the right knee, severe in the medial comp artment.
== END 2021-08-10 16:54 | disposition home or self-care (01) ==
LOC: ANHIMG 16:58
PROVIDERS: PCP Family Medicine; Visit Provider Physician Assistant
DX: Z98.890 Other specified postprocedural states (principal); M17.11 Unilateral primary osteoarthritis, right knee
CPT/HCPCS: 73564

== ENCOUNTER 2021-10-02 16:20 | Outpatient (CLI) | payer OTHER, SELFPAY ==
--- NOTE | ~2021-10-02 | CT_ITS ---
EXAMINATION:CT diagnostic chest w con DATE: 10/02/2021 17:23 INDICATION: Other diseases of mediastinum, not elsewhere specified. Anterior mediastinal mass. TECHNIQUE: Computed tomography (CT) of the chest was performed with 75 mL Omnipaque 350 intravenous c ontrast. Automated exposure control and iterative reconstruction technique were employed. The dose-le ngth product (DLP) was 570.62 mGy-cm. COMPARISON: Chest CT 05/20/2021, PET CT 06/02/2021 FINDINGS: The lungs demonstrate mild atelectasis. There is a 5 mm nodule in left lower lobe without c hange. No pleural effusion. The heart size is normal. No pericardial effusion. There is a small slidi ng hiatal hernia. There is wall thickening of distal esophagus. There is a 2.1 x 1.5 x 3.2 cm mass in the anterior mediastinum measuring soft tissue attenuation. There is diffuse hepatic steatosis. Ther e is severe thoracic spondylosis. IMPRESSION: 1. 2.1 x 1.5 x 3.2 cm anterior mediastinal mass, stable from 05/01/2021 and without increased activity on PET on 06/02/2021. The differential diagnosis includes thymoma and less likely germ cell tumor. 2. Small sliding hiatal hernia. 3. Wall thickening of distal esophagus without increased activity on prior PET, likely esophagitis. Reviewed, dictated and finalized at location E. NSED ELECTRICIAN IMPRESSION: 1. 2.1 x 1.5 x 3.2 cm anterior mediastinal mass, stable from 05/01/2021 and with out increased activity on PET on 06/02/2021. The differential diagnosis include s thymoma and less likely germ cell tumor. 2. Small sliding hiatal hernia. 3. Wall thickening of distal esophagus without increased activity on prior PET, likely esophagitis.
[2021-10-02 17:16] LABS: Estimated Glomerular Filt Rate > 60
== END 2021-10-02 16:21 | disposition home or self-care (01) ==
LOC: ANHIMG 16:20
PROVIDERS: PCP Family Medicine; Visit Provider Physician Assistant
DX: J98.59 Other diseases of mediastinum, not elsewhere classified (principal); R93.89 Abnormal findings on diagnostic imaging of other specified body structures; K44.9 Diaphragmatic hernia without obstruction or gangrene
CPT/HCPCS: 71260; Q9967

== ENCOUNTER 2021-11-19 08:04 | Outpatient (CLI) | payer OTHER, SELFPAY ==
[2021-11-19 08:31] LABS: Basophils Percent Auto 0.4 % (0.2-1.2); Eosinophils Absolute Auto 0.1 K/mm3 (0-0.3); Eosinophils Percent Auto 1.5 % (0-4.4); Hematocrit 43.7 % (37.0-47.0); Immature Granulocyte Absolute 0.03 K/mm3 (0.00-0.031); Immature Granulocyte Percent A 0.4 % (0-0.5); Lymphocytes Absolute Auto 1.93 K/mm3 (0.9-3.2); Lymphocytes Percent Auto 27.1 % (18.3-44.2); Mean Corpuscular Hemoglobin 30.2 pg (26-34); Mean Corpuscular Volume 94.4 fl (80-100); Mean Platelet Volume 8.3 fl (7.4-10.4); Monocytes Absolute Auto 0.5 K/mm3 (0.1-0.6); Monocytes Percent Auto 7.6 % (2.6-8.5); Neutrophils Absolute Auto 4.5 K/mm3 (1.3-6.7); Platelet Count Result 307 k/mm3 (150-375); Red Blood Count 4.63 M/mm3 (4.2-5.4); Red Cell Distribution Width 13.4 % (11.5-14.5); White Blood Count 7.1 K/mm3 (4.5-10.0)
[2021-11-19 09:25] LABS: Alanine Aminotransferase 44 U/L (4-35); Albumin Level 4.5 g/dL (3.5-5.1); Alkaline Phosphatase 89 U/L (38-126); Anion Gap 10 mmol/L (8-16); Aspartate Amino Transferase 32 U/L (14-36); Bilirubin,Total 0.5 mg/dL (0.2-1.3); Blood Urea Nitrogen 18 mg/dL (7-17); Calcium 9.4 mg/dL (8.4-10.2); Carbon Dioxide 26 mmol/L (22-30); Chloride 103 mmol/L (98-107); Estimated Glomerular Filt Rate > 60; Glucose 150 mg/dL (65-110); Lactate Dehydrogenase 456 U/L (313-618); Potassium 3.8 mmol/L (3.4-5.0); Sodium 139 mmol/L (137-145)
[2021-11-22 08:19] LABS: HCG Tumor Marker <3 mIU/mL (***)
[2021-11-25 20:27] LABS: Alpha Fetoprotein Tumor Marker 3.6 ng/mL (<6.1)
== END 2021-11-19 08:05 | disposition home or self-care (01) ==
LOC: ANHLAB 08:05
PROVIDERS: PCP Family Medicine; Visit Provider Internal Medicine Hematology & Oncology
DX: J98.59 Other diseases of mediastinum, not elsewhere classified (principal)
CPT/HCPCS: 36415; 80053; 82105; 83615; 84702; 85025

== ENCOUNTER 2021-11-28 09:50 | Outpatient (CLI) | payer OTHER, SELFPAY ==
[2021-11-28 11:19] LABS: Hemoglobin A1C 5.8 % (<5.7)
== END 2021-11-28 09:51 | disposition home or self-care (01) ==
LOC: ANHLAB 09:52
PROVIDERS: PCP Family Medicine; Visit Provider Physician Assistant
DX: R73.03 Prediabetes (principal)
CPT/HCPCS: 36415; 83036

== ENCOUNTER 2022-01-13 16:30 | Outpatient (RCR) | payer OTHER, SELFPAY ==
--- NOTE | 2021-11-13 17:35 | PTOPEVAL ---
Thank you for referring Kylee Souza to [facility] [place].? The patient is scheduled to be seen for therapy? 2 x/week for 6 weeks. Please review, sign, date and return this plan of care SLICK. I agree with and certify that the following plan of care is medically necessary. Referring Physician Date Attending Provider: LONA Silvestre Problem Diagnosis OA right knee Onset chronic Additional Evaluation Detail history of knee scope and meniscectomy at age 19. Subjective Information C/o right knee pain which Query Text:As Reported By Patient/ limits her ability to perform Family all daily task, steps, squatting, ADL's, walking and standing. C/o swelling of right knee and thigh. She has applied ice and compression socks for full leg for the swelling. She tries to go to [employer] 2x/wk but increased pain Unalbe to jeremy stretches. When she is fatigued her femur will shift ant in the knee joint. Reports 4-5 falls in the past month. Previous Treatments Previous Treatments For This Problem no Pain Assessment Right Knee(s) Reported Pain Level 6 Pain Frequency Chronic Lowest Pain Intensity 5 Greatest Pain Intensity 9 Pain Aggravating Factors ADL's,Bending,Exercise/ Activity,Prolonged Position, Sitting,Stair Climbing,Walking ,Weight Bearing/Standing Lower Extremity Range of Motion General Lower Extremity Range of Motion Gross Lower Extremity Range of Motion right knee: 3-100 dg (painful Comments with flex) left knee: 0-110 dg no pain Lower Extremity Muscle Strength Testing General Lower Extremity Strength Gross Lower Extremity Strength left LE 5/5 except hip abd 3+/ 5 Hip Strength Right Hip Flexion Strength 4 Good Hip Extension Strength 3 Fair Hip Abduction Strength 3 Fair Knee Strength Right Knee Flexion Strength 3+ Fair + Knee Extension Strength 4- Good - Muscle Length Testing Muscle Length Testing Piriformis w/Hip Neutral (R) Moderate Tightness Left Hamstring Length -25 Query Text:(90 - 90 Position) Posture Standing Position Shoulder Posture (L) Rounded,(R) Rounded,(L) Elevated,(R) Elevated Pelvis Posture
--- NOTE | 2021-12-08 07:15 | PCPTNOTE ---
Patient called & cancelled scheduled appointment 12/07/2021 no reason was given.
--- NOTE | 2021-12-14 17:34 | PTOPEVAL ---
Thank you for referring Kylee Souza to [facility].? The patient is scheduled to be seen for therapy 2x/week for 4 weeks. Please review, sign, date and return this plan of care SLICK. I agree with and certify that the following plan of care is medically necessary. Referring Physician Date Attending Provider: LONA Silvestre Diagnosis OA right knee Onset chronic Additional Evaluation Detail history of knee scope and meniscectomy at age 19. Subjective Information Improved jeremy with walking and Query Text:As Reported By Patient/ steps with limited time. She Family reports improved deviations with walking. C/o swelling of right knee region. Cont to have falls when walking with 2 falls since starting therapy. Pain Assessment Right Lower Back Reported Pain Level 4 Pain Description Aching,Sharp,Tender on Palpation,Throbbing Pain Frequency Continuous Lowest Pain Intensity 4 Greatest Pain Intensity 8 Pain Aggravating Factors Bending,Exercise/Activity, Stair Climbing,Walking,Weight Bearing/Standing Right Knee(s) Reported Pain Level 3 Pain Description Aching,Sharp,Tender on Palpation,Throbbing Pain Frequency Chronic Lowest Pain Intensity 3 Greatest Pain Intensity 9 Pain Aggravating Factors ADL's,Bending,Exercise/ Activity,Prolonged Position, Sitting,Stair Climbing,Walking ,Weight Bearing/Standing Lower Extremity Range of Motion General Lower Extremity Range of Motion Gross Lower Extremity Range of Motion right knee: 3-105 dg (painful Comments with flex) left knee: 0-110 dg no pain Lower Extremity Muscle Strength Testing Hip Strength Right Hip Flexion Strength 4+ Good + Hip Extension Strength 4+ Good + Hip Abduction Strength 3+ Fair + Knee Strength Right Knee Flexion Strength 4+ Good + Knee Extension Strength 4+ Good + Palpation Assessment Palpation severe tenderness of right medial/lateral knee joint line , patella, gastroc region tenderness right paraspinals, QL, glut region no tenderness of quad/ITB region Special Tests-Lower Extremity Trendelenburg Si
--- NOTE | 2021-12-29 17:11 | PCPTNOTE ---
Patient called after 5:00 to inform us she got out of work late today. She has been rescheduled for 01/04/22.
--- NOTE | 2022-01-04 16:59 | PCPTNOTE ---
Patient did not show up for scheduled appointment this date. She forgot about today's visit. She has a visit scheduled for 01/05.
--- NOTE | 2022-01-12 07:28 | PCPTNOTE ---
Patient arrived to therapy appointment 15min, utilized treatment time for being updated on patient's treatment and progress with therapy. Patient stated she had reduced her exercises to focus on two-three exercises per day maintaining 10rep x3reps without increase pain during exercise but reports once completed within an hour increase pain into right knee which will increase hip/low back pain. Stated to have taken a break from exercises since Tuesday with reduce pain, continues to have increase pain, swelling and tenderness into right LE at the end of the day every day. Has returned to taking more medication and pain management with elevation/ice. When asked about returning to [facility] patient stated she was told she needed to loose 50lb before she could return and she is currently down 21lb. Advised patient to hold on HEP until re-eval on Tuesday will update PT on further treatment options and proceed from there.
--- NOTE | 2022-01-13 17:48 | PTOPEVAL ---
PHYSICAL THERAPY DISCHARGE NOTE Thank you for referring Kylee Souza to [facility].? Please review, sign, date and return this plan of care SLICK. I agree with and certify that the following plan of care is medically necessary. Referring Physician Date Attending Provider: LONA Silvestre Diagnosis OA right knee Onset chronic Subjective Information reports that when she does her Query Text:As Reported By Patient/ exercises for PT she gets a Family lot of increased swelling and a knot in the back of right buttcheek and it sends pain all the way down the to the back of the knee. when she stops doing them for several days that particular pain stops and the swelling decreases. Reports that she has been feeling better the last several days and she has not been doing her HEP. General Lower Extremity Range of Motion Gross Lower Extremity Range of Motion right knee: 3-109 dg (painful Comments with flex) left knee: 0-110 dg no pain Lower Extremity Muscle Strength Testing General Lower Extremity Strength Gross Lower Extremity Strength left LE 5/5 except hip abd 3+/ 5 Hip Strength Right Hip Flexion Strength 4+ Good + Hip Extension Strength 4+ Good + Hip Abduction Strength 4 Good Knee Strength Right Knee Flexion Strength 5 Normal Knee Extension Strength 4+ Good + Gait Assessment 2 Minute Walk Total Distance Walked (feet) 429 2 Minute Walk Gait Speed Score (feet/ 3.57 second) 2 Minute Walk Test Comments knee started to get tired by the last 30seconds; no increase in pain PT Clinical Summary Kylee is a 56 yo female participating in physical therapy to conservatively treat right knee pain. She demonstrates improved right LE strength and walking tolerance. We spent an extensive amount of time discussing how to use her HEP to her benefit without overdoing exercises that cause more pain. I encouraged her to continue walking with good
== END 2022-01-20 12:20 | disposition home or self-care (01) ==
LOC: ANHPT 16:30
PROVIDERS: PCP Family Medicine; Visit Provider Physician Assistant Surgical
DX: M25.561 Pain in right knee (principal)
CPT/HCPCS: 97110; 97112; 97140; 97161; 97530

== ENCOUNTER 2022-03-20 09:52 | Outpatient (CLI) | payer OTHER, SELFPAY ==
--- NOTE | ~2022-03-20 | CT_ITS ---
EXAMINATION: CT diagnostic chest w con DATE: 03/20/2022 10:32 INDICATION: Mediastinal mass TECHNIQUE: Computed tomography (CT) of the chest was performed with 75 CC Omnipaque 300 intravenous c ontrast. Automated exposure control and iterative reconstruction technique were employed. Exam dose: 447.35 mGy-cm total exam DLP. COMPARISON: 10/02/2021 CT chest 05/20/2021 CT chest FINDINGS: There is no interval change in size, shape or density of anterior mediastinal mass since , measuring 1.6 cm transverse, 1.8 cm AP and 3.2 cm vertical dimension. This may be due to thy moma, germ cell tumor or thyroid tissue. No other mediastinal or hilar mass lesion or lymphadenopathy is noted. Chronic asymmetric enlargement of right lobe of thyroid gland. Normal heart size. No pericardial or pleural effusion. No thoracic aortic aneurysm or dissection. Stable approximately 5 mm nodular density in the left lateral costophrenic gutter, left lower lobe, u nchanged since 05/20/2021, likely due to old pulmonary granulomatous disease. No pulmonary infiltrate or consolidation or pulmonary mass lesion is noted otherwise. Small sliding hiatal hernia. IMPRESSION: Stable anterior mediastinal mass since 05/20/2021; differential diagnosis given above Stable 5 mm probable pulmonary granuloma, left lower lobe, unchanged since 05/20/2021 Reviewed, dictated and finalized at Location A. Reviewed, dictated and finalized at location B. IMPRESSION: Stable anterior mediastinal mass since 05/20/2021; differential jaydon gnosis given above Stable 5 mm probable pulmonary granuloma, left lower lobe, unchanged since 05/20
[2022-03-20 10:24] LABS: Estimated Glomerular Filt Rate > 60
== END 2022-03-20 09:53 | disposition home or self-care (01) ==
PROVIDERS: PCP Family Medicine; Visit Provider Internal Medicine Hematology & Oncology
DX: J98.59 Other diseases of mediastinum, not elsewhere classified (principal)
CPT/HCPCS: 71260; Q9967

== ENCOUNTER 2022-06-12 09:31 | Outpatient (CLI) | payer OTHER, SELFPAY ==
[2022-06-12 09:52] LABS: Basophils Percent Auto 0.5 % (0.2-1.2); Eosinophils Absolute Auto 0.1 K/mm3 (0-0.3); Eosinophils Percent Auto 1.5 % (0-4.4); Hematocrit 42.9 % (37.0-47.0); Hemoglobin 13.9 g/dL (12.0-15.0); Immature Granulocyte Absolute 0.02 K/mm3 (0.00-0.031); Immature Granulocyte Percent A 0.3 % (0-0.5); Lymphocytes Absolute Auto 1.94 K/mm3 (0.9-3.2); Mean Corpuscular HGB Conc 32.4 g/dl (32-36); Mean Corpuscular Hemoglobin 29.8 pg (26-34); Mean Corpuscular Volume 91.9 fl (80-100); Mean Platelet Volume 8.1 fl (7.4-10.4); Monocytes Absolute Auto 0.4 K/mm3 (0.1-0.6); Monocytes Percent Auto 7.1 % (2.6-8.5); Neutrophils Absolute Auto 3.6 K/mm3 (1.3-6.7); Neutrophils Percent Auto 58.6 % (45.5-73.1); Platelet Count Result 271 k/mm3 (150-375); Red Blood Count 4.67 M/mm3 (4.2-5.4); Red Cell Distribution Width 13.5 % (11.5-14.5); White Blood Count 6.1 K/mm3 (4.5-10.0)
[2022-06-12 10:04] LABS: Add Urine Microscopic? YES; Appearance Urine Cloudy (Clear); Bilirubin Urine Negative (Negative); Blood Urine Negative (Negative); Color Urine Yellow (Yellow); Glucose Urine UA Negative (Negative); Ketones Urine Negative (Negative); Leukocyte Esterase Ur Negative LEU/UL (NEGATIVE); Nitrate Urine Negative (Negative); Protein Urine Negative (Negative); RBC Urine 0-2 /hpf (0-2); Specific Grav Ur 1.019 (1.001-1.035); Squamous Epithelial Cell Urine Few /hpf (Few); Urobilinogen Urine Negative mg/dL (<2.0); WBC Urine 0-3 /hpf (0-3)
[2022-06-12 10:08] LABS: Alanine Aminotransferase 29 U/L (6-35); Albumin Level 4.3 g/dL (3.5-5.1); Alkaline Phosphatase 74 U/L (38-126); Anion Gap 13 mmol/L (8-16); Aspartate Amino Transferase 23 U/L (14-36); Bilirubin,Total 0.3 mg/dL (0.2-1.3); Blood Urea Nitrogen 19 mg/dL (7-17); Calcium 9.2 mg/dL (8.4-10.2); Carbon Dioxide 30 mmol/L (22-30); Chloride 100 mmol/L (98-107); Cholesterol 163 mg/dL (0-200); Estimated Glomerular Filt Rate > 60; Glucose 123 mg/dL (65-110); HDL Direct 42 mg/dL; Potassium 3.8 mmol/L (3.4-5.0); Sodium 143 mmol/L (137-145); Triglycerides 91 mg/dL (<150)
[2022-06-12 10:10] LABS: Hemoglobin A1C 5.8 % (<5.7); Rheumatoid Factor < 8.6 IU/ML (<12)
[2022-06-12 10:19] LABS: LDL Cholesterol Direct 100 mg/dL
[2022-06-12 10:38] LABS: Thyroid Stimulating Hormone 0.458 uIU/mL (0.465-4.680)
== END 2022-06-12 09:32 | disposition home or self-care (01) ==
PROVIDERS: PCP Family Medicine; Visit Provider Physician Assistant
DX: Z00.00 Encounter for general adult medical examination without abnormal findings (principal); R73.03 Prediabetes; K76.0 Fatty (change of) liver, not elsewhere classified; E78.5 Hyperlipidemia, unspecified; J98.59 Other diseases of mediastinum, not elsewhere classified; E66.01 Morbid (severe) obesity due to excess calories; Z68.41 Body mass index [BMI] 40.0-44.9, adult; I10 Essential (primary) hypertension; M25.50 Pain in unspecified joint
CPT/HCPCS: 36415; 80053; 80061; 81001; 83036; 84443; 85025; 86038; 86430

== ENCOUNTER 2022-07-02 12:10 | Outpatient (CLI) | payer OTHER, SELFPAY ==
[2022-07-02 12:46] LABS: Appearance Urine Clear (Clear); Bilirubin Urine Negative (Negative); Blood Urine Negative (Negative); Color Urine Yellow (Yellow); Glucose Urine UA Negative (Negative); Ketones Urine Negative (Negative); Leukocyte Esterase Ur Negative LEU/UL (NEGATIVE); Nitrate Urine Negative (Negative); Protein Urine Negative (Negative); Specific Grav Ur 1.015 (1.001-1.035); Urobilinogen Urine 0.2 mg/dL (<2.0)
[2022-07-02 13:14] LABS: Add Urine Microscopic? NO
== END 2022-07-02 12:11 | disposition home or self-care (01) ==
LOC: ANHLAB 12:12
PROVIDERS: PCP Family Medicine; Visit Provider Physician Assistant
DX: N39.0 Urinary tract infection, site not specified (principal); R10.2 Pelvic and perineal pain; R10.9 Unspecified abdominal pain
CPT/HCPCS: 81003; 87086

== ENCOUNTER 2022-07-03 09:31 | Outpatient (CLI) | payer OTHER, SELFPAY ==
--- NOTE | ~2022-07-03 | XR_ITS ---
XR foot RT min 3V DATE: 07/03/2022 10:12 INDICATION: Chronic worsening right ankle and foot pain for 3 months TECHNIQUE: 4 views COMPARISON: None FINDINGS: Status post bunionectomy. There is a K wire in the distal shaft, neck and head of the first metatarsal bone. Moderate osteoarthritis at the first metatarsophalangeal joint. Plantar calcaneal enthesopathy without erosive change or periostitis. No fracture, dislocation, periosteal reaction or bone destruction is detected. IMPRESSION: Status post bunionectomy Osteoarthritis at first metatarsophalangeal joint Plantar calcaneal enthesopathy Reviewed, dictated and finalized at location A. ING THERAPY TEACHER
--- NOTE | ~2022-07-03 | XR_ITS ---
XR hip BI 2V w AP pelvis DATE: 07/03/2022 10:12 INDICATION: Pelvis and hip pain TECHNIQUE: AP pelvis. AP and lateral views of each hip. COMPARISON: None FINDINGS: No pelvic fracture or bone destruction. Normal alignment at the pubic symphysis and sacroil iac joints. Hip joint spaces are symmetric and relatively preserved. No fracture, dislocation, avascular necrosis or bone destruction of either hip is detected. IMPRESSION: No significant abnormality Reviewed, dictated and finalized at location A. ICATION TECHNICAL DESIGNER IMPRESSION: No significant abnormality
--- NOTE | ~2022-07-03 | XR_ITS ---
XR hand BI arthritis min 3V DATE: 07/03/2022 10:12 INDICATION: Bilateral hand pain TECHNIQUE: 4 views of each hand COMPARISON: None FINDINGS: There is mild osteoarthritis at the interphalangeal joints. Occasional benign carpal bone c ysts. No fracture or dislocation, periosteal reaction or bone destruction, erosive change or chondroc alcinosis. IMPRESSION: Mild osteoarthritis Reviewed, dictated and finalized at location A. NCILIATION CLERK IMPRESSION: Mild osteoarthritis
--- NOTE | ~2022-07-03 | XR_ITS ---
XR ankle RT min 3V DATE: 07/03/2022 10:12 INDICATION: Chronic worsening ankle pain for 3 months TECHNIQUE: 4 views COMPARISON: None FINDINGS: No fracture or dislocation of the ankle or disruption of the ankle mortise. No periosteal r eaction or bone destruction. Plantar calcaneal enthesopathy. Postoperative change of the first metatarsal bone. IMPRESSION: No fracture or dislocation of the ankle Plantar calcaneal enthesopathy Reviewed, dictated and finalized at location A. CLOSING MACHINE TENDER
== END 2022-07-03 09:32 | disposition home or self-care (01) ==
PROVIDERS: PCP Family Medicine; Visit Provider Physician Assistant
DX: M25.579 Pain in unspecified ankle and joints of unspecified foot (principal); M25.559 Pain in unspecified hip; R29.6 Repeated falls; M19.042 Primary osteoarthritis, left hand; M19.041 Primary osteoarthritis, right hand; Z98.890 Other specified postprocedural states; M19.071 Primary osteoarthritis, right ankle and foot; M77.31 Calcaneal spur, right foot
CPT/HCPCS: 73130; 73521; 73610; 73630

== ENCOUNTER 2022-08-23 11:54 | Outpatient (CLI) | payer OTHER, SELFPAY ==
--- NOTE | ~2022-08-23 | CT_ITS ---
Clinical Indication: Mediastinal mass CT Scan of the Chest with Contrast: Technique: Contiguous sections were acquired throughout the chest after intravenous administration of 75 cc of Omnipaque 350. Dose reduction technique was used on this scan by utilizing automated exposu re control and iterative reconstruction technique. The dose-length product (DLP) was 419.39 mGy-cm. COMPARISON: 03/20/2022 Findings: 2.0 x 1.4 cm oval soft tissue mass in the anterior mediastinum is essentially unchanged from prior ex am.. No large central pulmonary embolus seen. There is no evidence of aortic dissection or aneurysm. There is no evidence of pleural or pericardial effusion. There is focal irregular area of groundglass opacification the right upper lobe with central 5 mm are a of more confluent nodular opacity (axial images 25-30). Images through the upper abdomen reveal no abnormalities. Impression: Stable 2.0 x 1.4 cm anterior mediastinal mass, as detailed above. This could reflect thymoma or thymi c lesion, but remains somewhat nonspecific. Groundglass opacity with central nodular opacity in the right upper lobe, most compatible with focal pneumonia. Consider short-term follow-up exam to assure resolution. Reviewed, dictated and finalized at [facility]. NG CAR STEWARD Impression: Stable 2.0 x 1.4 cm anterior mediastinal mass, as detailed above. This could re flect thymoma or thymic lesion, but remains somewhat nonspecific. Groundglass opacity with central nodular opacity in the right upper lobe, most compatible with focal pneumonia. Consider short-term follow-up exam to assure r esolution.
[2022-08-23 12:19] LABS: Estimated Glomerular Filt Rate > 60
== END 2022-08-23 11:55 | disposition home or self-care (01) ==
PROVIDERS: PCP Family Medicine; Visit Provider Internal Medicine Hematology & Oncology
DX: J98.59 Other diseases of mediastinum, not elsewhere classified (principal); R22.2 Localized swelling, mass and lump, trunk
CPT/HCPCS: 71260; Q9967

== ENCOUNTER 2022-08-24 16:40 | Outpatient (CLI) | payer OTHER, SELFPAY ==
[2022-08-24 18:04] LABS: Uric Acid 5.2 mg/dL (2.5-7.5)
[2022-08-24 18:41] LABS: Free T4 Free Thyroxine 1.27 ng/mL (0.78-2.19)
== END 2022-08-24 16:41 | disposition home or self-care (01) ==
PROVIDERS: PCP Family Medicine; Visit Provider Physician Assistant
DX: R79.89 Other specified abnormal findings of blood chemistry (principal); M25.571 Pain in right ankle and joints of right foot
CPT/HCPCS: 36415; 84439; 84443; 84550

== ENCOUNTER 2022-09-20 09:38 | Outpatient (CLI) | payer OTHER, SELFPAY ==
[2022-09-20 09:53] LABS: Basophils Percent Auto 0.4 % (0.2-1.2); Eosinophils Absolute Auto 0.1 K/mm3 (0-0.3); Eosinophils Percent Auto 1.7 % (0-4.4); Hematocrit 44.3 % (37.0-47.0); Hemoglobin 14.2 g/dL (12.0-15.0); Immature Granulocyte Absolute 0.03 K/mm3 (0.00-0.031); Immature Granulocyte Percent A 0.4 % (0-0.5); Lymphocytes Absolute Auto 1.96 K/mm3 (0.9-3.2); Lymphocytes Percent Auto 26.3 % (18.3-44.2); Mean Corpuscular HGB Conc 32.1 g/dl (32-36); Mean Corpuscular Hemoglobin 29.6 pg (26-34); Mean Corpuscular Volume 92.3 fl (80-100); Mean Platelet Volume 8.1 fl (7.4-10.4); Monocytes Absolute Auto 0.6 K/mm3 (0.1-0.6); Monocytes Percent Auto 8.1 % (2.6-8.5); Neutrophils Absolute Auto 4.7 K/mm3 (1.3-6.7); Neutrophils Percent Auto 63.1 % (45.5-73.1); Platelet Count Result 296 k/mm3 (150-375); Red Cell Distribution Width 13.3 % (11.5-14.5); White Blood Count 7.5 K/mm3 (4.5-10.0)
[2022-09-20 09:59] LABS: Blood Urea Nitrogen 21 mg/dL (8-26); Carbon Dioxide 31 mmol/L (22-30); Chloride 103 mmol/L (98-109); Estimated Glomerular Filt Rate > 60; Glucose 103 mg/dL (70-105); Ionized Calcium (POC) 1.21 mmol/L (1.11-1.31); Potassium 3.8 mmol/L (3.5-4.9); Sodium 142 mmol/L (138-146)
[2022-09-20 13:53] LABS: Alanine Aminotransferase 29 U/L (6-35); Albumin Level 4.4 g/dL (3.5-5.1); Alkaline Phosphatase 80 U/L (38-126); Anion Gap 3 mmol/L (8-16); Aspartate Amino Transferase 22 U/L (14-36); Bilirubin,Total 0.4 mg/dL (0.2-1.3); Blood Urea Nitrogen 20 mg/dL (7-17); Calcium 9.3 mg/dL (8.4-10.2); Carbon Dioxide 31 mmol/L (22-30); Chloride 103 mmol/L (98-107); Estimated Glomerular Filt Rate > 60; Glucose 99 mg/dL (65-110); Potassium 3.8 mmol/L (3.4-5.0); Sodium 137 mmol/L (137-145)
== END 2022-09-20 09:39 | disposition home or self-care (01) ==
LOC: ANHLAB 09:40
PROVIDERS: PCP Family Medicine; Visit Provider Internal Medicine Hematology & Oncology
DX: J98.59 Other diseases of mediastinum, not elsewhere classified (principal)
CPT/HCPCS: 36415; 80047; 80053; 85025

== ENCOUNTER 2023-03-26 09:57 | Outpatient (CLI) | payer OTHER, SELFPAY ==
--- NOTE | ~2023-03-26 | CT_ITS ---
Clinical Indication: Mediastinal mass CT Scan of the Chest with Contrast: Technique: Contiguous sections were acquired throughout the chest after intravenous administration of 75 cc of Omnipaque 350. Dose reduction technique was used on this scan by utilizing automated exposu re control and iterative reconstruction technique. The dose-length product (DLP) was 594.08 mGy-cm. COMPARISON: 08/23/2022 and 05/20/2021 Findings: Stable 1.9 cm ovoid soft tissue density mass in the anterior mediastinum (axial image 40). There is n o filling defect in the pulmonary arterial tree to suggest pulmonary embolus. There is no evidence of aortic dissection or aneurysm. Small hiatal hernia noted. There is no evidence of pleural or pericardial effusion. The lungs are clear. No pulmonary nodules or infiltrates are noted. Images through the upper abdomen reveal diffuse fatty infiltration of liver. Impression: 1.9 cm ovoid soft tissue density mass in the anterior mediastinum, essentially unchanged since 021. Stability over this time interval suggests benignity. Small hiatal hernia. Diffuse fatty infiltration of liver. Reviewed, dictated and finalized at location . Impression: 1.9 cm ovoid soft tissue density mass in the anterior mediastinum, essentially unchanged since 05/20/2021. Stability over this time interval suggests benignity . Small hiatal hernia. Diffuse fatty infiltration of liver.
[2023-03-26 10:46] LABS: Estimated Glomerular Filt Rate > 60
== END 2023-03-26 09:58 | disposition home or self-care (01) ==
PROVIDERS: PCP Family Medicine; Visit Provider Internal Medicine Hematology & Oncology
DX: J98.59 Other diseases of mediastinum, not elsewhere classified (principal); K44.9 Diaphragmatic hernia without obstruction or gangrene; K76.0 Fatty (change of) liver, not elsewhere classified
CPT/HCPCS: 71260; Q9967

== ENCOUNTER 2023-08-02 07:00 | Outpatient (CLI) | payer OTHER, SELFPAY ==
[2023-08-02 07:44] LABS: Basophils Percent Auto 0.4 % (0.2-1.2); Eosinophils Absolute Auto 0.2 K/mm3 (0-0.3); Eosinophils Percent Auto 2.5 % (0-4.4); Hematocrit 43.9 % (37.0-47.0); Hemoglobin 14.1 g/dL (12.0-15.0); Immature Granulocyte Absolute 0.02 K/mm3 (0.00-0.031); Immature Granulocyte Percent A 0.3 % (0-0.5); Lymphocytes Absolute Auto 2.27 K/mm3 (0.9-3.2); Lymphocytes Percent Auto 29.4 % (18.3-44.2); Mean Corpuscular HGB Conc 32.1 g/dl (32-36); Mean Corpuscular Hemoglobin 29.7 pg (26-34); Mean Corpuscular Volume 92.4 fl (80-100); Mean Platelet Volume 8.5 fl (7.4-10.4); Monocytes Absolute Auto 0.6 K/mm3 (0.1-0.6); Monocytes Percent Auto 8.2 % (2.6-8.5); Neutrophils Absolute Auto 4.6 K/mm3 (1.3-6.7); Neutrophils Percent Auto 59.2 % (45.5-73.1); Platelet Count Result 316 k/mm3 (150-375); Red Blood Count 4.75 M/mm3 (4.2-5.4); Red Cell Distribution Width 13.3 % (11.5-14.5); White Blood Count 7.7 K/mm3 (4.5-10.0)
[2023-08-02 08:00] LABS: Hemoglobin A1C 6.4 % (<5.7)
[2023-08-02 08:15] LABS: Alanine Aminotransferase 33 U/L (6-35); Albumin Level 4.3 g/dL (3.5-5.1); Alkaline Phosphatase 118 U/L (38-126); Anion Gap 6 mmol/L (8-16); Aspartate Amino Transferase 22 U/L (14-36); Bilirubin,Total 0.4 mg/dL (0.2-1.3); Blood Urea Nitrogen 23 mg/dL (7-17); Calcium 9.3 mg/dL (8.4-10.2); Carbon Dioxide 29 mmol/L (22-30); Chloride 103 mmol/L (98-107); Cholesterol 186 mg/dL (0-200); Estimated Glomerular Filt Rate > 60; Glucose 138 mg/dL (65-110); HDL Direct 43 mg/dL; LDL Cholesterol Direct 110 mg/dL; Potassium 4.2 mmol/L (3.4-5.0); Sodium 138 mmol/L (137-145); Triglycerides 170 mg/dL (<150)
[2023-08-02 09:16] LABS: Appearance Urine Clear (Clear); Bilirubin Urine Negative (Negative); Blood Urine Negative (Negative); Color Urine Yellow (Yellow); Glucose Urine UA Negative (Negative); Ketones Urine Negative (Negative); Leukocyte Esterase Ur Negative LEU/UL (NEGATIVE); Nitrate Urine Negative (Negative); Protein Urine Negative (Negative); Specific Grav Ur 1.019 (1.001-1.035); Urobilinogen Urine 0.2 mg/dL (<2.0)
[2023-08-02 09:23] LABS: Add Urine Microscopic? NO
== END 2023-08-02 07:01 | disposition home or self-care (01) ==
LOC: ANHLAB 07:01
PROVIDERS: PCP Family Medicine; Visit Provider Physician Assistant
DX: E78.5 Hyperlipidemia, unspecified (principal); I10 Essential (primary) hypertension; R73.01 Impaired fasting glucose; K76.0 Fatty (change of) liver, not elsewhere classified
CPT/HCPCS: 36415; 80053; 80061; 81003; 83036; 84443; 85025

== ENCOUNTER 2023-10-17 16:12 | Outpatient (CLI) | payer OTHER, SELFPAY ==
--- NOTE | ~2023-10-17 | XR_ITS ---
Lumbosacral Spine: AP and lateral views Clinical History: Pain Findings: The normal lordotic curve is maintained. The vertebral bodies and posterior elements are i ntact. The intervertebral disc spaces are preserved. The sacroiliac joints are normally outlined. Impression: No significant abnormality. Reviewed, dictated and finalized at [facility]. NSIC TECHNICIAN Impression: No significant abnormality.
== END 2023-10-17 16:13 ==
PROVIDERS: PCP Family Medicine; Visit Provider Family Medicine
DX: M54.50 Low back pain, unspecified (principal)
CPT/HCPCS: 72100

== ENCOUNTER 2023-12-03 10:11 | Outpatient (CLI) | payer OTHER, SELFPAY ==
--- NOTE | ~2023-12-03 | CT_ITS ---
EXAMINATION: CT brain wo con DATE: 12/03/2023 10:37 INDICATION: Chronic daily headache TECHNIQUE: Computed tomography (CT) of the head was performed without intravenous contrast. Sagittal and coronal reconstructions were performed. The mA was adjusted according to patient size. Iterative reconstruction technique was employed. The dose-length product was 605.33 mGy-cm. COMPARISON: None FINDINGS: No acute intracranial hemorrhage, acute infarction or abnormal extra axial fluid collection. Ventricl es are normal and symmetric. No mass/mass effect. Hyperostosis frontalis. The orbits, paranasal sinus es and mastoid air cells are normal. IMPRESSION: 1. Normal brain. No acute intracranial process. Reviewed, dictated and finalized at location A.
== END 2023-12-03 10:12 | disposition home or self-care (01) ==
PROVIDERS: PCP Family Medicine; Visit Provider Student in an Organized Health Care Education/Training Program
DX: R51.9 Headache, unspecified (principal)
CPT/HCPCS: 70450

== ENCOUNTER 2023-12-07 16:11 | Outpatient (CLI) | payer OTHER, SELFPAY ==
--- NOTE | ~2023-12-07 | XR_ITS ---
XR knee LT min 4V 12/07/2023 16:34 Indication: Left knee pain Procedure: 5 views left knee Comparison: No prior studies for comparison. Findings: Mild tricompartment osteoarthritis. There is anatomic alignment. No fracture, subluxation o r dislocation. No joint effusion. Impression: 1: Mild tricompartment osteoarthritis. Reviewed, dictated and finalized at location B. Impression: 1: Mild tricompartment osteoarthritis.
== END 2023-12-07 16:12 | disposition home or self-care (01) ==
PROVIDERS: PCP Family Medicine; Visit Provider Physician Assistant
DX: M17.12 Unilateral primary osteoarthritis, left knee (principal)
CPT/HCPCS: 73564

== ENCOUNTER 2024-02-26 19:59 | Emergency (ER) | payer OTHER, SELFPAY ==
[2024-02-26] VITALS (16 sets, daily range): BP systolic 132–173; BP diastolic 89–108; PULSE 71–90; RESP 13–21; TEMP 37.1; O2SAT 94–99
--- NOTE | ~2024-02-26 | XR_ITS ---
EXAMINATION: XR chest 2V Exam Date/Time: 02/26/2024 20:16 CDT HISTORY: Chest pain, tightness, HTN Comparison: 05/20/2021; CT chest 03/26/2023. RESULT: Lines, tubes, and devices: None. Lungs and pleura: Clear. Cardiomediastinal silhouette: Stable. A known and presumed benign anterior mediastinal mass seen in the prior CT is not confidently visualized. Other: No acute osseous or upper abdominal finding. IMPRESSION: No acute cardiopulmonary process. Reviewed, dictated and finalized at location K.
--- NOTE | 2024-02-26 20:00 | ECG_ITS ---
Test Date: 2024-02-26 20:04:22 Measurements Intervals [place] Rate: 84 P: 10 GA: 160 QRS: 3 QRSD: 84 T: 17 QT: 360 QTc: 426 Interpretive Statements SINUS RHYTHM DELAYED PRECORDIAL R/S TRANSITION BASELINE ARTIFACT- I, III, AVL BORDERLINE ECG No previous ECG available for comparison Electronically Signed On 02-26-2024 20:48:00 CDT by Julio Haynes D.O.
--- NOTE | 2024-02-26 20:21 | ED.CHESTPAIN ---
HPI - Chest Pain General Chief Complaint: Chest Pain Stated Complaint: BP issues, chest pain Time Seen by Provider: 02/26/24 20:20 History of Present Illness HPI narrative: Patient is a 58-year-old female with history of hypertension, back pain, here with high blood pressure reading and chest pain. Patient states that she has been dealing with the symptoms for about 3 weeks. She has been discussing these symptoms with her primary care doctor. She is initially having some low blood pressure readings at home as low as 90s systolic and her primary care doctor decreased her hydrochlorothiazide dose in half about 1 week ago. She states that over the last few weeks she has been having intermittent midsternal chest pain as well as some left arm pain. She notes that the pain seems to be worsened when she gets her blood pressure taken on the left arm. She denies any history of PE or DVT. About a week ago she did have an episode of near-syncope while working outside in the hot sun on [employer] work and the symptoms resolved after she ate and drink something at home. She did not get seen at that time. Family believes she has had some increased brain fog over the last 3 weeks. She denies any neurologic symptoms. No prior cardiac history, she did have a nuclear stress test about 3 years ago which was normal. 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 Tonight she noted several high blood pressure readings at home upwards of 160 systolic and was advised by her primary care doctor for blood pressure got higher than 140 systolic that she should come into the emergency department for evaluation. This has prompted visit to the ER today. She does have a primary care appointment scheduled for tomorrow to discuss her blood pressure issues. Related Data Allergies Allergy/AdvReac Type Severity Reaction Status Date / Time codeine Allergy Mild Itching Verified 02/26/24 20:38 Sulfa (Sulfonamide Allergy Mild HIVES Verified 02/26/24 20:38 Antibiotics) omeprazole [From Prilosec] Allergy Muscle Verified 02/26/24 20:38 Spasms Review of Systems Review of Systems: All systems reviewed & are unremarkable except as noted in HPI and below PMFSH Past Medical History Medical History Chest pain Choking Esophageal disease History of stress test (~05/2021) HTN (hypertension) Insomnia Mediastinal mass Migraines Morbid obesity with BMI of 40.0-44.9, adult SOB (shortness of breath) Surgical History Surgical History History of carpal tunnel release of both wrists (~2005) History of D&C 6-7 (Between 7935-5404) History of hysterectomy (~2012) History of right knee surgery (~1985) Cartilage Removed History of toe surgery Pin Insertion History of wisdom tooth extraction Family History Family History Father Heart disease CHF Hypertension COPD (chronic obstructive pulmonary disease) Mother Heart disease Getting stents in May 2021 Hypertension Depression Social History Social History Social History: , loss first 3 children shortly after but has 1 surviving son. 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 Smoking status: Never smoker Second hand tobacco smoke exposure: No Alcohol intake: never Alcohol use details: rarely Substance use: never Substance use type: does not use Do You Feel Safe in your Home?: Yes Lack of Transportation: No Lack of Food: Never True Current Housing: I Have Housing Concerned About Future Housing: No Difficulty Paying Gas/Electric Bills: No Difficulty Paying for Meds: No Currently Unemployed: No Education: Bachelor's Degree Difficulty w/ Childcare or Family Care: No Living arrangements: with family Occupation/Education: occupation
[2024-02-26 20:24] LABS: Basophils Percent Auto 0.5 % (0.2-1.2); Eosinophils Absolute Auto 0.2 K/mm3 (0-0.3); Eosinophils Percent Auto 1.8 % (0-4.4); Hematocrit 43.1 % (37.0-47.0); Hemoglobin 13.8 g/dL (12.0-15.0); Immature Granulocyte Absolute 0.05 K/mm3 (0.00-0.031); Immature Granulocyte Percent A 0.6 % (0-0.5); Lymphocytes Absolute Auto 2.45 K/mm3 (0.9-3.2); Mean Corpuscular Hemoglobin 29.7 pg (26-34); Mean Corpuscular Volume 92.7 fl (80-100); Mean Platelet Volume 8.3 fl (7.4-10.4); Monocytes Absolute Auto 0.5 K/mm3 (0.1-0.6); Monocytes Percent Auto 6.5 % (2.6-8.5); Neutrophils Percent Auto 60.6 % (45.5-73.1); Platelet Count Result 285 k/mm3 (150-375); Red Blood Count 4.65 M/mm3 (4.2-5.4); Red Cell Distribution Width 13.7 % (11.5-14.5); White Blood Count 8.2 K/mm3 (4.5-10.0)
[2024-02-26 20:34] LABS: Partial Thromboplastin Time 27.4 Seconds (22.3-36.8); Prothrombin Time 13.2 Seconds (11.1-14.7)
[2024-02-26 20:42] LABS: Alanine Aminotransferase 31 U/L (6-35); Albumin Level 4.4 g/dL (3.5-5.1); Alkaline Phosphatase 91 U/L (38-126); Anion Gap 10 mmol/L (4-12); Aspartate Amino Transferase 25 U/L (14-36); Bilirubin,Total 0.4 mg/dL (0.2-1.3); Blood Urea Nitrogen 15 mg/dL (7-17); Calcium 9.4 mg/dL (8.4-10.2); Carbon Dioxide 24 mmol/L (22-30); Chloride 108 mmol/L (98-107); Estimated CRCL calculation 82 ml/min; Estimated Glomerular Filt Rate > 60; Glucose 98 mg/dL (65-110); Lipase 96 U/L (23-300); Potassium 3.8 mmol/L (3.4-5.0); Sodium 142 mmol/L (137-145)
[2024-02-26 20:52] LABS: Troponin I < 0.012 ng/mL (0.000-0.034)
--- NOTE | 2024-02-26 22:58 | ECG_ITS ---
Test Date: 2024-02-26 22:58:18 Measurements Intervals [place] Rate: 73 P: -2 FL: 153 QRS: 2 QRSD: 90 T: 12 QT: 390 QTc: 432 Interpretive Statements SINUS RHYTHM BASELINE ARTIFACT- I, II, III, AVR, AVL, AVF NORMAL ECG Compared to ECG 02/26/2024 20:04:22 No significant changes Electronically Signed On 02-27-2024 15:09:09 CDT by Julio Haynes D.O.
[2024-02-26 23:22] LABS: Troponin I < 0.012 ng/mL (0.000-0.034)
== END 2024-02-26 23:42 | disposition home or self-care (01) ==
PROVIDERS: Emergency Provider Student in an Organized Health Care Education/Training Program; PCP Family Medicine
DX: R07.89 Other chest pain (principal); I10 Essential (primary) hypertension; E66.01 Morbid (severe) obesity due to excess calories; Z68.41 Body mass index [BMI] 40.0-44.9, adult; Z90.710 Acquired absence of both cervix and uterus
CPT/HCPCS: 36415; 71046; 80053; 83690; 84484; 85025; 85610; 85730; 93005; 99284

== ENCOUNTER 2024-04-02 17:12 | Outpatient (CLI) | payer OTHER, SELFPAY ==
[2024-04-02 18:36] LABS: Vitamin D 25 Hydroxy 37.1 ng/mL
[2024-04-02 20:30] LABS: Thyroid Stimulating Hormone 0.886 uIU/mL (0.465-4.680)
[2024-04-02 21:07] LABS: Folic Acid 12.5 ng/mL (2.76->20)
== END 2024-04-02 17:13 | disposition home or self-care (01) ==
LOC: ANHLAB 17:14
PROVIDERS: PCP Family Medicine; Visit Provider Family Medicine
DX: R53.83 Other fatigue (principal)
CPT/HCPCS: 36415; 82306; 82607; 82746; 84443